=== PATIENT | female | born 1960 | race Caucasian/White ===

== ENCOUNTER 2020-03-19 07:43 | Outpatient (CLI) | payer BC, SELFPAY ==
--- NOTE | 2020-03-19 | EST_ITS ---
Patient Info Name: Jazmin Coppola Age: 59 years : 1960 Gender: Female Ht: 64 in Wt: 180 lbs BSA: 1.95 m2 Exam Date: 03/19/2020 10:07 AM Exam Location: [facility] Stress Patient Status: Outpatient Admit Date: 03/19/2020 Staff Ordering Physician: Eugenio Schroeder MD Attending Provider: Eugenio Schroeder MD Exercise Technologist: Betty Luque RDCS Exercise Physician: Jonny Kapadia DO Exam Type: CA stress rakesh w NM Study Info Indications R07.9 - Chest pain, unspecified A regadenoson stress test was performed. Summary 1. 1. Negative lexiscan stress test for ischemic ST changes by ECG criteria. 2. 2. Baseline hypertension. 3. 3. Nuclear scan to follow and will be reported separately. Please correlate with it. 4. 4. Patient informed of the above results. Protocol: Lexiscan Stress ECG Details Stage: REST Duration (min): 7 min : 22 sec HR (bpm): 81 SBP (mmHg): 153 DBP (mmHg): 90 Stage: REST Duration (min): 11 min : 29 sec HR (bpm): 76 SBP (mmHg): 153 DBP (mmHg): 90 Stage: STAGE 1 Duration (min): 1 min : 0 sec HR (bpm): 88 SBP (mmHg): 150 DBP (mmHg): 88 Stage: RECOVERY Duration (min): 1 min : 0 sec HR (bpm): 98 SBP (mmHg): 146 DBP (mmHg): 85 Stage: RECOVERY Duration (min): 2 min : 0 sec HR (bpm): 98 SBP (mmHg): 146 DBP (mmHg): 85 Stage: RECOVERY Duration (min): 3 min : 0 sec HR (bpm): 96 SBP (mmHg): 151 DBP (mmHg): 81 Stage: RECOVERY Duration (min): 3 min : 4 sec HR (bpm): 94 SBP (mmHg): 151 DBP (mmHg): 81 Rest HR: 76 bpm Peak HR: 101 bpm Rest Sys BP: 153 mmHg Peak Sys BP: 151 mmHg Max Pred HR: 160 bpm % Max Pred HR: 63 % Target HR: 136 bpm Max RPP: 15,251 bpm*mmHg Termination Reason: Completed protocol Cardiac Symptoms: Shortness of breath Total Time: 1 min : 0 sec Rest Marc BP: 90 mmHg Peak Marc BP: 81 mmHg Total Dose: 0.4 mg Resting ECG Sinus rhythm. Stress ECG No ST changes. Arrhythmias None. Report Signatures
--- NOTE | ~2020-03-19 | NM_ITS ---
EXAMINATION: NM rakesh stress w perfusion DATE: 03/19/2020 12:54 INDICATION: Chest pain TECHNIQUE: Rest images were obtained following intravenous administration of 10.7 mCi Tc99m tetrofosm in (Myoview). The patient was infused intravenously with Lexiscan (Regadenoson). Then, 30.2 mCi Tc99m tetrofosmin (Myoview) was administered intravenously, and stress images were obtained in supine posi tion. Additional post stress images were obtained in prone position. Data was reconstructed into shor t axis and horizontal and vertical long axis SPECT images. Gated SPECT images were also obtained. COMPARISON: None. FINDINGS: There is no definite reversible or fixed perfusion abnormality to suggest ischemia or infar ction. There is normal left ventricular chamber size, wall motion and ejection fraction. Left ventr icular ejection fraction measures 61%. IMPRESSION: 1. Normal myocardial perfusion at rest and during stress. 2. Left ventricular ejection fraction measuring 61%. Reviewed, dictated and finalized at location A.
== END 2020-03-19 07:44 | disposition home or self-care (01) ==
PROVIDERS: PCP Family Medicine; Visit Provider Family Medicine
DX: R07.9 Chest pain, unspecified (principal)
CPT/HCPCS: 78452; 93017; A9502; J2785

== ENCOUNTER 2020-08-13 16:46 | Outpatient (CLI) | payer BC, SELFPAY | END 2020-08-13 16:47 | disposition home or self-care (01) | LOC: ANHCOVIDVC 16:46 | PROVIDERS: PCP Family Medicine | DX: Z23 Encounter for immunization (principal) | CPT/HCPCS: 0001A; 91300 ==

== ENCOUNTER → 2020-08-30 06:50 | Outpatient (CLI) | payer BC, SELFPAY ==
[2020-08-30 19:22] LABS: SARS-CoV-2 RNA PCR Negative
== END ==
PROVIDERS: PCP Family Medicine; Visit Provider Physician Assistant Medical
DX: R68.89 Other general symptoms and signs (principal); Z20.822 Contact with and (suspected) exposure to COVID-19
CPT/HCPCS: C9803; U0003; U0005

== ENCOUNTER 2020-09-10 14:22 | Outpatient (CLI) | payer BC, SELFPAY ==
--- NOTE | ~2020-09-10 | XR_ITS ---
XR chest 2V DATE: 09/10/2020 14:46 INDICATION: Wheezing TECHNIQUE: PA and lateral views COMPARISON: 12/12/2018 PA and lateral chest FINDINGS: Normal heart size. No hilar or mediastinal enlargement. Mild thoracic aortic arch calcifica tion. No pulmonary infiltrate or consolidation, pleural effusion or pulmonary vascular congestion or pneumo thorax. Mild thoracic and lumbar scoliosis and degenerative change. Osteopenia is suggested. IMPRESSION: No active cardiopulmonary disease Mild degenerative change and scoliosis of the thoracic and lumbar spine. Osteopenia Reviewed, dictated and finalized at location A.
== END 2020-09-10 14:23 | disposition home or self-care (01) ==
LOC: ANHCOVIDVC 14:37 → ANHIMG 14:38
PROVIDERS: PCP Family Medicine; Visit Provider Physician Assistant Medical
DX: R06.2 Wheezing (principal); M41.84 Other forms of scoliosis, thoracic region; M41.86 Other forms of scoliosis, lumbar region; M85.88 Other specified disorders of bone density and structure, other site
CPT/HCPCS: 71046

== ENCOUNTER 2020-09-24 16:34 | Outpatient (CLI) | payer BC, SELFPAY | END 2020-09-24 16:35 | disposition home or self-care (01) | LOC: ANHCOVIDVC 16:34 | PROVIDERS: PCP Family Medicine | DX: Z23 Encounter for immunization (principal) | CPT/HCPCS: 0002A; 91300 ==

== ENCOUNTER 2020-10-17 09:48 | Outpatient (CLI) | payer BC, SELFPAY ==
--- NOTE | ~2020-10-17 | XR_ITS ---
EXAMINATION: XR thoracic spine 3V EXAM DATE: 10/17/2020 10:12 INDICATION: M51.34 - Other intervertebral disc degeneration, thoracic region. Back pain. TECHNIQUE: Frontal and lateral projections of the thoracic spine as well as lateral swimmers projecti on of the upper thoracic spine for interpretation. Correlation is made to lumbar x-ray same date. FINDINGS: Mild mid and lower thoracic disc disease with some small endplate osteophytes. The vertebr al body heights are maintained. The vertebral bodies are aligned in the AP dimension. Paraspinal soft tissue is unremarkable. There are no bony erosions identified. IMPRESSION: Mild mid and lower thoracic spondylosis. Reviewed, dictated and finalized at location A.
--- NOTE | ~2020-10-17 | XR_ITS ---
EXAMINATION: XR lumbar spine 6V w bending EXAM DATE: 10/17/2020 10:12 INDICATION: Low back pain and bilateral leg tingling. TECHNIQUE: Lumber spine frontal, lateral, bilateral oblique projections. Coned down frontal and lat eral L5-S1 lumbar projections for interpretation. Additional lateral flexion and lateral extension p rojections obtained. There are no prior studies for comparison. FINDINGS: Vertebral bodies are aligned on the lateral projections. Mild diffuse lumbar disc disease. No spondylolysis. There is moderate lower lumbar facet arthropathy. Sacrum, sacroiliac joints, sacral arcuate lines are intact. Paraspinal soft tissue is unremarkable. IMPRESSION: 1. Moderate lower lumbar facet arthropathy. 2. Mild disc disease. Reviewed, dictated and finalized at location A.
== END 2020-10-17 09:49 | disposition home or self-care (01) ==
PROVIDERS: PCP Family Medicine; Visit Provider Family Medicine
DX: M51.36 Other intervertebral disc degeneration, lumbar region (principal); M47.814 Spondylosis without myelopathy or radiculopathy, thoracic region; M47.816 Spondylosis without myelopathy or radiculopathy, lumbar region; M51.9 Unspecified thoracic, thoracolumbar and lumbosacral intervertebral disc disorder
CPT/HCPCS: 72072; 72114

== ENCOUNTER 2020-11-02 09:59 | Outpatient (CLI) | payer BC, SELFPAY ==
--- NOTE | ~2020-11-02 | MR_ITS ---
EXAMINATION: MR lumbar spine wo con EXAM DATE: 11/02/2020 11:33 INDICATION: M51.36 - Other intervertebral disc degeneration, lumbar region . Pain down right leg. TECHNIQUE: Multi-sequential, multiplanar MR images of the lumbar spine were obtained without contrast . Sagittal T1, T2, T2 fat saturation images. Axial T2 weighted images. Comparison is made to prior examination from lumbar x-ray 10/17/2020. FINDINGS: The conus medullaris terminates at the L1/2 level and has normal signal intensity and morph ology. The vertebral bodies are aligned in the AP dimension. Vertebral body and disc heights are well -maintained. Small hemangioma in the L2 vertebral body. The vertebral body marrow is otherwise normal in signal intensity. Paraspinal soft tissue is unremarkable. Fluid signal intensity left renal lesio n, imaged portion is consistent with cyst Level by level evaluation: T12-L1: There is a minimal diffuse disc bulge. Facet arthropathy: None. Neural foraminal stenosis: No stenosis. Central canal stenosis: No stenosis. L1-L2: Disc does not extend beyond the endplate margin. Facet arthropathy: Mild. Neural foraminal stenosis: No stenosis. Central canal stenosis: No stenosis. L2-L3: Disc does not extend beyond the endplate margin. Facet arthropathy: Mild. Neural foraminal stenosis: No stenosis. Central canal stenosis: No stenosis. L3-L4: There is a mild diffuse disc bulge, far left annular fissure. Facet arthropathy: Mild. Neural foraminal stenosis: Minimal left. Central canal stenosis: No stenosis. L4-L5: There is a mild diffuse disc bulge. Facet arthropathy: Moderate left, mild to moderate right. Small right synovial cyst narrowing right l ateral recess Neural foraminal stenosis: Mild to moderate right, mild left. Central canal stenosis: Mild. L5-S1: There is a mild diffuse disc bulge. Facet arthropathy: Mild. Neural foraminal stenosis: Mild bilateral. Central canal stenosis: No stenosis. IMPRESSION: 1. L4-5 spondylosis, small right facet synovial cyst causing some mass effect on traversing right L5 nerve root at the lateral recess. 2. Less spondylosis other levels. Reviewed, dictated and finalized at location A.
== END 2020-11-02 10:00 | disposition home or self-care (01) ==
PROVIDERS: PCP Family Medicine; Visit Provider Family Medicine
DX: M51.36 Other intervertebral disc degeneration, lumbar region (principal); M47.816 Spondylosis without myelopathy or radiculopathy, lumbar region
CPT/HCPCS: 72148

== ENCOUNTER 2020-11-05 12:32 | Outpatient (CLI) | payer BC, SELFPAY ==
--- NOTE | ~2020-11-05 | DEXA_ITS ---
Bone Density Report Name: Jazmin Coppola Age: 60 Sex: Female Ethnicity: White Date of : 1960 Indication: postmenopausal; height loss; prior fracture; cancer; hysterectomy; Referring Provider: Nathan Bella Study: Bone densitometry was performed. Exam Date: November 05, 2020 Accession number: [id number] Bone Density: Region BMD T-score Z-score Classification AP Spine (L1-L4) 1.028 -0.2 1.3 Normal Femoral Neck (Left) 0.859 0.1 1.4 Normal Total Hip (Left) 1.047 0.9 1.9 Normal Total Hip Bilateral Avg 1.075 1.1 2.1 Normal Femoral Neck (Right) 0.819 -0.3 1.1 Normal Total Hip (Right) 1.102 1.3 2.3 Normal World Health Organization criteria for BMD impression classify patients as: Normal (T-score at or above -1.0), Osteopenia (T-score between -1.0 and -2.5), or Osteoporosis (T-score at or below -2.5). 10-year Fracture Risk: FRAX not reported because: All T-scores for Spine Total, Hip Total, Femoral Neck at or above -1.0 Prior hip or vertebral fracture Clinical Information Provided by Patient: Have had a previous hip or vertebral fracture Has had a low trauma fracture Smokes Has used the following medications: Vitamin D Has the following medical conditions: Cancer, Hysterectomy Patient maximum height was 66 Menopause Age: 39 No regular weight bearing exercise Onset of menses at age 11 Number of children 3 Impression: The patient has normal bone mass. The patient has risk factors, including: smoking, previous fracture. Discussion: INCREASED RISK OF FRACTURE DUE TO HISTORY OF FRACTURE. The patient's previous fracture puts the patient at high risk of a future fracture. In untreated patients, the risk of osteoporotic fracture increases approximately two-fold for each 1.0 SD decrease in T-score. Low bone density is not the only risk factor for fracture; also consider factors such as patient's age, frailty or poor health, risk of falling, risk of injury, previous osteoporotic fracture, family history of osteoporosis, cigarette smoking, low body weight, etc. Not everyone with a low trauma fracture has osteoporosis; osteomalacia and other metabolic bone disorders should also be considered. Patients who have osteoporosis should be evaluated for specific diseases and conditions (secondary causes) that may cause or contribute to bone loss and fracture risk. National Osteoporosis Foundation (NOF) recommends pharmacologic intervention for patients with a prior hip or vertebral fracture regardless of BMD T-score. The patient should follow a healthful lifestyle (good nutrition with adequate calcium and vitamin D, and appropriate weight-bearing exercise). Follow-Up: Consider a repeat BMD and Vertebral Fracture Assessment (VFA) exam in 2 years or sooner if medically necessary, to reassess this patient's status.
== END 2020-11-05 12:33 | disposition home or self-care (01) ==
LOC: ANHIMG 12:36
PROVIDERS: PCP Family Medicine; Visit Provider Nurse Practitioner Family
DX: Z78.0 Asymptomatic menopausal state (principal)
CPT/HCPCS: 77080

== ENCOUNTER 2020-12-30 15:03 | Outpatient (CLI) | payer BC, SELFPAY ==
[2020-12-30 16:01] LABS: Basophils Absolute Auto 0.1 K/mm3 (0.0-0.1); Basophils Percent Auto 0.6 % (0.2-1.2); Eosinophils Absolute Auto 0.2 K/mm3 (0-0.3); Eosinophils Percent Auto 1.4 % (0-4.4); Hematocrit 53.2 % (37.0-47.0); Hemoglobin 17.1 g/dL (12.0-15.0); Immature Granulocyte Percent A 0.6 % (0-0.5); Lymphocytes Absolute Auto 4.09 K/mm3 (0.9-3.2); Lymphocytes Percent Auto 23.3 % (18.3-44.2); Mean Corpuscular HGB Conc 32.1 g/dl (32-36); Mean Corpuscular Hemoglobin 28.6 pg (26-34); Mean Corpuscular Volume 89.1 fl (80-100); Monocytes Absolute Auto 1.2 K/mm3 (0.1-0.6); Monocytes Percent Auto 7.1 % (2.6-8.5); Neutrophils Absolute Auto 11.8 K/mm3 (1.3-6.7); Platelet Count Result 306 k/mm3 (150-375); Red Blood Count 5.97 M/mm3 (4.2-5.4); Red Cell Distribution Width 13.1 % (11.5-14.5); White Blood Count 17.6 K/mm3 (4.5-10.0)
--- NOTE | 2020-12-30 16:08 | ECG_ITS ---
Measurements Intervals [place] Rate: 90 P: -4 ND: 140 QRS: 60 QRSD: 71 T: 17 QT: 334 QTc: 411 Interpretive Statements SINUS RHYTHM BORDERLINE T WAVE ABNORMALITY- INFERIOR LEADS BASELINE ARTIFACT- V6 BORDERLINE ECG Electronically Signed On 12-30-2020 16:48:58 CDT by Jonny Kapadia D.O.
[2020-12-30 16:21] LABS: Alanine Aminotransferase 17 U/L (4-35); Albumin Level 4.3 g/dL (3.5-5.1); Alkaline Phosphatase 141 U/L (38-126); Anion Gap 10 mmol/L (8-16); Aspartate Amino Transferase 29 U/L (14-36); Bilirubin,Total 0.3 mg/dL (0.2-1.3); Blood Urea Nitrogen 18 mg/dL (7-17); Calcium 9.9 mg/dL (8.4-10.2); Carbon Dioxide 29 mmol/L (22-30); Chloride 98 mmol/L (98-107); Estimated Glomerular Filt Rate > 60; Glucose 340 mg/dL (65-110); Sodium 137 mmol/L (137-145)
[2020-12-30 16:37] LABS: Free T4 Free Thyroxine 1.02 ng/mL (0.78-2.19)
[2020-12-30 16:52] LABS: Thyroid Stimulating Hormone 0.994 uIU/mL (0.465-4.680)
[2020-12-30 19:17] LABS: Hemoglobin A1C 13.4 % (<5.7)
== END 2020-12-30 15:04 | disposition home or self-care (01) ==
PROVIDERS: PCP Family Medicine; Visit Provider Nurse Practitioner Family
DX: R42 Dizziness and giddiness (principal); E11.9 Type 2 diabetes mellitus without complications; R11.0 Nausea; E03.9 Hypothyroidism, unspecified; I10 Essential (primary) hypertension
CPT/HCPCS: 36415; 80053; 83036; 84439; 84443; 85025; 93005

== ENCOUNTER → 2020-12-31 08:06 | Outpatient (CLI) | payer BC, SELFPAY ==
[2020-12-31 18:17] LABS: SARS-CoV-2 RNA PCR Negative
== END ==
PROVIDERS: PCP Family Medicine; Visit Provider Nurse Practitioner Family
DX: R68.89 Other general symptoms and signs (principal); Z20.822 Contact with and (suspected) exposure to COVID-19
CPT/HCPCS: C9803; U0003; U0005

== ENCOUNTER 2021-01-28 07:26 | Outpatient (CLI) | payer BC, SELFPAY ==
--- NOTE | 2021-01-28 07:48 | ECHO_ITS ---
Patient Info Name: Jazmin Coppola Age: 60 years : 1960 Gender: Female Ht: 65 in Wt: 200 lbs BSA: 2.07 m2 HR: 88 bpm BP: 126 / 80 mmHg Technical Quality: Good Exam Date: 01/28/2021 8:04 AM Exam Location: [facility] Patient Status: Outpatient Admit Date: 01/28/2021 Staff Ordering Physician: Oksana Padilla NP Vice President Of Talent Acquisition: Betty Luque RDCS Attending Provider: Oksana Padilla NP Referring Physician: Valerie PALAFOX; Exam Type: CA echo doppler color flow Study Info Indications G47.30 - SLEEP APNEA, UNSPECIFIED Complete two-dimensional, color flow and Doppler transthoracic echocardiogram is performed. Summary 1. Complete two-dimensional, color flow and Doppler transthoracic echocardiogram is performed. 2. Left ventricular chamber dimension is normal. 3. Left ventricular systolic function is normal, estimated at 60-65%. 4. The left ventricular diastolic function is grade I diastolic dysfunction. 5. E/e' 11 is mildly elevated. 6. Global longitudinal strain is abnormal at -15.6%. 7. No pulmonary hypertension, estimated pulmonary arterial systolic pressure is 18 mmHg. Left Ventricle E/e' 11 is mildly elevated. Global longitudinal strain is abnormal at -15.6%. Left ventricular chamber dimension is normal. Left ventricular systolic function is normal, estimated at 60-65%. The left ventricular diastolic function is grade I diastolic dysfunction. Right Ventricle Right ventricular chamber dimension is normal. Right ventricular systolic function is normal. Left Atria Left atrial chamber dimension is normal. Right Atria Right atrial chamber dimension is normal. Aortic Valve The aortic valve is trileaflet. There is no aortic valve stenosis. There is no aortic valve regurgitation. Pulmonic Valve There is no pulmonic regurgitation. Mitral Valve There is no mitral valve stenosis. There is no mitral valve regurgitation. Tricuspid Valve There is no tricuspid valve regurgitation. No pulmonary hypertension, estimated pulmonary arterial systolic pressure is 18 mmHg. Pericardium/Pleural There is no pericardial effusion. Inferior Vena Cava Normal inferior vena cava with >50% collapse upon inspiration consistent with normal right atrial pressure, 5 mmHg. Aorta The aortic root size at the sinus of Valsalva is normal. Left Ventricular Outflow Tract Name Value Normal LVOT 2D LVOT Diameter 2.0 cm LVOT Doppler LVOT Peak Gradient 5 mmHg LVOT Mean Gradient 3 mmHg LVOT VTI 18 cm LVOT VTI/AV VTI Ratio 0.8 LVOT Stroke Volume 58 ml LVOT CO 5.0 l/min LVOT CI 2.4 l/min/m2 Pulmonic Valve Name Value Normal RVOT Doppler
--- NOTE | 2021-01-31 12:41 | WPDHOLTEREM ---
Holter/Event Monitor Holter/Event Monitor Date of procedure: 01/31/21 Holter/Event Procedure: 48 Hr Holter Monitor Indications: Palpitations Conclusion: 1. 48 hour holter monitor on 01/28/21. 2. Predominant rhythm is sinus rhythm. HR range 59-150 bpm; average HR 93 bpm. 3. There are 75 premature supraventricular complexes, 1 supraventricular couplet. One episode of atrial tachycardia at 150 bpm lasting 5 beats. 4. There is 7 premature ventricular complexes. No ventricular tachycardia. 5. No sinoatrial or atrioventricular blocks. No significant pauses greater than 2 seconds. 6. Patient reports chest tightness which demonstrate sinus rhythm at 85 bpm and PAC's.
== END 2021-01-28 07:27 | disposition home or self-care (01) ==
PROVIDERS: PCP Family Medicine; Visit Provider Nurse Practitioner Family
DX: G47.30 Sleep apnea, unspecified (principal); I10 Essential (primary) hypertension; R00.2 Palpitations
CPT/HCPCS: 93225; 93226; 93306

== ENCOUNTER 2021-02-24 07:54 | Outpatient (CLI) | payer BC, SELFPAY ==
--- NOTE | 2021-03-06 13:55 | WPDHOMESLEEP ---
Sleep Study - Home Unattended Date of Study: 02/24/21 Ordering Provider: Eugenio Schroeder MD Interpreting Provider: Mayra Werner, DO Home Sleep Study Type: Apnea Link Air Height: 1.65 m Weight: 90.718 kg Body Mass Index: 33.3 Neck Circumference (inches): 15 [place]: 10 Reason for Sleep Study The patient had a home sleep test ordered due to insomnia. Sleep History The patient is a 60-year-old female with hypertension, type 2 diabetes and chronic pain that complains of poor sleep. She states that she is unable to sleep for more than 2 hours at a time for over 1 year. She states that she has chronic hip and leg pain. She is currently on tramadol for pain and Ambien to help her sleep. Despite being on both of these medications, she is up multiple times per night. The patient states that she never wakes up from sleep short of breath. She often wakes up coughing throughout the night. She rarely snores but never loud enough that anyone complaints. She denies waking up gasping for air. She denies having breathing problems at night. She does have heart palpitations throughout the night. She does not fall asleep throughout the day or while driving. She denies cataplexy, sleep paralysis, hypnopompic and hypnagogic hallucinations. She denies nightmares. She never feels sad or depressed. She rarely has anxiety about things. She frequently has muscle tension and notices parts of her body jerk. She really has [place] throughout the night. She does experience crawling and aching feelings in her legs and does have leg pain throughout the night. She used to grind her teeth at night but rarely wakes up with drop pain. She is awakened by pain constantly throughout the night and is often bothered by pain throughout the day. She frequently wakes up with sore and achy muscles. The patient states that she goes to bed at 10:00 p.m. to midnight both on the week days in the week nights. She will get 4-6 hours of sleep but is mostly broken. she will wake up 5-6 times throughout the night for various reasons. She is unsure how long it takes her to fall back asleep. When she awakens throughout the night she will sometimes sit up in the kitchen. She will awake in anywhere from 7-10 a.m. both weekdays and weekends. She currently lives with her . She is a homemaker. She does not drink any caffeinated beverages 2 hours prior to bedtime. She denies any physical exercise prior to bedtime. She sometimes reads and watches television before going to bed. She does nap in the afternoon or evening and it is sometimes refreshing. she currently smokes 1 pack of cigarettes per day. She denies any caffeine, alcohol and recreational drug use. [facility] Past Medical History Medical History Abnormal MRI, spine BMI 34.0-34.9,adult BMI 35.0-35.9,adult BMI 36.0-36.9,adult Chest pain Degenerative lumbar disc Essential (primary) hypertension Fibromyalgia Holter monitor, abnormal Hypothyroidism Low vitamin B12 level Lumbosacral radiculopathy due to degenerative joint disease of spine PAC (premature atrial contraction) Post-menopausal Thoracic degenerative disc disease Type 2 diabetes mellitus without complications Vitamin D deficiency, unspecified Family History Family History Father Hypertension Mother Hypertension Diabetes mellitus Gall stone Son No problems noted. Sibling Hypertension Gall stone Other Family history of malignant neoplasm of brain Social History Social History Smoking packs per day: 1 Smoking cigarettes per day: 20.0 Years smoked: 25 Smoking pack-years: 25.00 Smoking status: Current every day smoker Tobacco type: cigarettes Second hand tobacco smoke exposure: No Alcohol intake: current Substance use: never Substa
[2021-03-06 14:07] VITALS: BMI 33.3
== END 2021-02-25 10:38 | disposition home or self-care (01) ==
LOC: ANHCSM 07:56
PROVIDERS: PCP Family Medicine; Visit Provider Family Medicine
DX: G47.00 Insomnia, unspecified (principal)
CPT/HCPCS: 95806

== ENCOUNTER 2021-03-04 22:05 | Emergency (ER) | payer BC, SELFPAY ==
[2021-03-04 22:15] VITALS: BP 161/86; PULSE 92; PULSE 95; RESP 17; O2SAT 98
--- NOTE | 2021-03-04 22:18 | ECG_ITS ---
Measurements Intervals [place] Rate: 86 P: 50 SD: 162 QRS: 51 QRSD: 82 T: 39 QT: 332 QTc: 398 Interpretive Statements SINUS RHYTHM BORDERLINE R WAVE PROGRESSION, ANTERIOR LEADS BASELINE ARTIFACT- I, II, III, AVR, AVF, V1 BORDERLINE ECG Electronically Signed On 03-05-2021 6:20:52 CDT by Jonny Kapadia D.O.
--- NOTE | 2021-03-04 23:06 | ED.ARRPALP ---
HPI - Arrhythmia/Palpitations General Chief Complaint: Chest Pain Stated Complaint: chest pain Time Seen by Provider: 03/04/21 22:46 History of Present Illness HPI narrative: 60-year-old female past medical history of hypertension negative nuclear stress test 1 year ago who has an appoint with her steam table associate tomorrow complaining of multiple episodes of chest squeezing with palpitations prior to arrival when she went to sleep. No fever no shortness of breath no syncope no leg swelling, no recent travel no recent surgeries. Multiple episodes of left-sided chest pain felt like it was going up behind her chest per patient and then went away. No chest pain currently. No palpitations current knee. Patient recently had a Holter monitor done and is following up with her steam table associate regarding results she also had a sleep study done. Patient has had fluttering at bedtime but she says it has never been this painful before. complaint: palpitations Duration: intermittent and now resolved Severity: severe Context: occurred during rest Associated symptoms: chest pain Related Data Allergies Allergy/AdvReac Type Severity Reaction Status Date / Time aspirin Allergy Unknown Unknown Verified 03/05/21 11:12 clopidogrel Allergy Unknown Unknown Verified 03/05/21 11:12 codeine Allergy Unknown Nausea Verified 03/05/21 11:12 ibuprofen Allergy Unknown Unknown Verified 03/05/21 11:12 CLOPIDOGREL BISULFATE Allergy Mild Unknown Uncoded 03/05/21 11:12 Review of Systems Review of Systems: CONSTITUTIONAL: no fever, no weight loss, no confusion EYES: no vision changes, no eye pain ENT: no rhinorrhea, no sore throat, no difficulty swallowing CARDIOVASCULAR: positive for chest pain, no leg edema, positive for palpitations RESPIRATORY: no cough, no shortness of breath, no hemoptysis GASTROINTESTINAL: no abdominal pain, no nausea, no vomiting, no diarrhea GENITOURINARY: no flank pain, no dysuria, no hematuria SKIN: no rash, no jaundice MUSCULOSKELETAL: no back pain, no trauma. NEUROLOGIC: No headache, no dizziness, no focal weakness PSYCHIATRIC: No hallucinations, no suicidal ideation PMFSH Past Medical History Medical History Abnormal MRI, spine BMI 34.0-34.9,adult BMI 35.0-35.9,adult BMI 36.0-36.9,adult Chest pain Degenerative lumbar disc Essential (primary) hypertension Fibromyalgia Holter monitor, abnormal Hypothyroidism Low vitamin B12 level Lumbosacral radiculopathy due to degenerative joint disease of spine PAC (premature atrial contraction) Post-menopausal Thoracic degenerative disc disease Type 2 diabetes mellitus without complications Vitamin D deficiency, unspecified Family History Family History Father Hypertension Mother Hypertension Diabetes mellitus Gall stone Son No problems noted. Sibling Hypertension Gall stone Other Family history of malignant neoplasm of brain Social History Social History Smoking packs per day: 1 Smoking cigarettes per day: 20.0 Years smoked: 25 Smoking pack-years: 25.00 Smoking status: Current every day smoker Tobacco type: cigarettes Second hand tobacco smoke exposure: No Alcohol intake: current Substance use: never Substance use type: does not use Additional occupation/education comments: homebody Gender identity (if verbalized by the patient): Female Exam Narrative: General: alert, afebrile, answering all questions appropriately Head: normocephalic, atraumatic Eyes: EOMI bilaterally, anicteric, no injection ENT: moist mucous membranes, oropharynx patent Neck: supple, trachea midline, no JVD Chest: equal chest rise bilaterally, no chest wall trauma noted Lungs: clear to auscultation bilaterally, respirations unlabored CV: regular rate, no LUIS B, calf size equal bilaterally EXT:
--- NOTE | 2021-03-04 23:20 | PC.NURSE ---
Report received from SUSHIL Vargas, to continue care Awaiting disposition.
[2021-03-04 23:21] VITALS: BP 142/100; PULSE 94; RESP 18; O2SAT 96
== END 2021-03-04 23:27 | disposition home or self-care (01) ==
PROVIDERS: Emergency Provider Emergency Medicine; PCP Family Medicine
DX: R00.2 Palpitations (principal); R07.9 Chest pain, unspecified; I10 Essential (primary) hypertension; E03.9 Hypothyroidism, unspecified; F17.210 Nicotine dependence, cigarettes, uncomplicated
CPT/HCPCS: 93005; 99283

== ENCOUNTER 2021-09-23 11:41 | Outpatient (CLI) | payer OTHER, SELFPAY ==
[2021-09-23 12:20] LABS: Rheumatoid Factor < 8.6 IU/ML (<12)
[2021-09-23 12:45] LABS: Erythrocyte Sedimentation Rate 12 mm/hr (0-20)
== END 2021-09-23 11:42 | disposition home or self-care (01) ==
LOC: ANHLAB 11:43
PROVIDERS: PCP Family Medicine; Visit Provider Nurse Practitioner Family
DX: M79.7 Fibromyalgia (principal); M51.36 Other intervertebral disc degeneration, lumbar region
CPT/HCPCS: 36415; 85652; 86038; 86430

== ENCOUNTER 2021-10-20 12:57 | Outpatient (CLI) | payer OTHER, SELFPAY ==
[2021-10-20 13:30] LABS: Hemoglobin 16.5 g/dL (12.0-15.0); Mean Corpuscular HGB Conc 31.7 g/dl (32-36); Mean Corpuscular Hemoglobin 29.1 pg (26-34); Mean Corpuscular Volume 91.7 fl (80-100); Mean Platelet Volume 9.5 fl (7.4-10.4); Platelet Count Result 310 k/mm3 (150-375); Red Blood Count 5.67 M/mm3 (4.2-5.4); Red Cell Distribution Width 13.1 % (11.5-14.5); White Blood Count 14.5 K/mm3 (4.5-10.0)
[2021-10-20 13:44] LABS: Alanine Aminotransferase 11 U/L (6-35); Albumin Level 4.5 g/dL (3.5-5.1); Alkaline Phosphatase 86 U/L (38-126); Anion Gap 5 mmol/L (8-16); Aspartate Amino Transferase 29 U/L (14-36); Bilirubin,Total 0.5 mg/dL (0.2-1.3); Blood Urea Nitrogen 13 mg/dL (7-17); Calcium 9.4 mg/dL (8.4-10.2); Carbon Dioxide 34 mmol/L (22-30); Chloride 93 mmol/L (98-107); Cholesterol 235 mg/dL (0-200); Estimated Glomerular Filt Rate > 60; Glucose 142 mg/dL (65-110); HDL Direct 56 mg/dL; Sodium 132 mmol/L (137-145); Triglycerides 233 mg/dL (<150)
[2021-10-20 13:55] LABS: LDL Cholesterol Direct 133 mg/dL
[2021-10-20 14:16] LABS: Creatinine Urine 150.4 mg/dL
[2021-10-20 14:21] LABS: MALB Creatinine Ratio 10.2 mg/g (0-30); Microalbumin Urine Random 15.3 mg/L (0-16.7)
[2021-10-20 14:32] LABS: Free T4 Free Thyroxine 1.02 ng/mL (0.78-2.19); Vitamin D 25 Hydroxy 35.5 ng/mL
== END 2021-10-20 12:58 | disposition home or self-care (01) ==
LOC: ANHLAB 12:59
PROVIDERS: PCP Family Medicine; Visit Provider Family Medicine
DX: E11.9 Type 2 diabetes mellitus without complications (principal); E03.9 Hypothyroidism, unspecified; E53.8 Deficiency of other specified B group vitamins; E55.9 Vitamin D deficiency, unspecified; E78.5 Hyperlipidemia, unspecified; Z13.220 Encounter for screening for lipoid disorders; I10 Essential (primary) hypertension
CPT/HCPCS: 36415; 80048; 80061; 80076; 82043; 82306; 82607; 84439; 84443; 85027

== ENCOUNTER 2021-10-29 08:47 | Outpatient (CLI) | payer OTHER, SELFPAY ==
--- NOTE | ~2021-10-29 | MR_ITS ---
EXAMINATION: MR lumbar spine wo con DATE: 10/29/2021 09:16 INDICATION: Other spondylosis with radiculopathy, lumbosacral region. Low back pain. Bilateral leg pa in. TECHNIQUE: Magnetic resonance imaging (MRI) of the lumbar spine was performed without intravenous con trast. Sequences included sagittal T2-weighted FSE, sagittal T2-weighted FS FSE, sagittal T1-weighted FSE, and axial T2-weighted FSE. COMPARISON: Lumbar spine MRI 11/02/2020 FINDINGS: There is 5 degrees levocurvature of lumbar spine. Vertebral body heights are normal. Interv ertebral disc heights are normal. The distal spinal cord signal intensity is normal. The conus medull hua is at T12-L1. There is a 19 mm cyst in left kidney. The following disc levels are specifically d iscussed: L1-L2: There is a central protrusion. There is mild bilateral facet joint osteoarthritis. There is no neural foraminal stenosis. There is mild central canal stenosis. L2-L3: The disc does not extend beyond the endplate margin. There is mild bilateral facet joint osteo arthritis. There is no neural foraminal stenosis. There is no central canal stenosis. L3-L4: The disc is bulging and has an annular fissure. There is mild right and moderate left facet ric int osteoarthritis. There is mild left neural foraminal stenosis. There is mild central canal stenosi s. L4-L5: The disc is bulging and has an annular fissure. There is severe bilateral facet joint osteoart hritis. There is mild bilateral neural foraminal stenosis. There is mild central canal stenosis. L5-S1: The disc is bulging. There is severe bilateral facet joint osteoarthritis. There is mild left neural foraminal stenosis. There is mild central canal stenosis. IMPRESSION: 1. Mild lumbar spondylosis, stable from 11/02/2020. Reviewed, dictated and finalized at location A.
== END 2021-10-29 08:48 ==
LOC: MICIMG 08:48
PROVIDERS: PCP Family Medicine; Visit Provider Family Medicine
DX: M47.27 Other spondylosis with radiculopathy, lumbosacral region (principal)
CPT/HCPCS: 72148

== ENCOUNTER 2022-01-26 13:38 | Outpatient (CLI) | payer OTHER, SELFPAY ==
[2022-01-26 14:12] LABS: Alanine Aminotransferase 12 U/L (6-35); Albumin Level 4.4 g/dL (3.5-5.1); Alkaline Phosphatase 86 U/L (38-126); Aspartate Amino Transferase 31 U/L (14-36); Bilirubin,Total 0.4 mg/dL (0.2-1.3)
== END 2022-01-26 13:39 | disposition home or self-care (01) ==
LOC: ANHLAB 13:40
PROVIDERS: PCP Family Medicine; Visit Provider Family Medicine
DX: B35.1 Tinea unguium (principal)
CPT/HCPCS: 36415; 80076

== ENCOUNTER 2022-06-03 17:46 | Outpatient (CLI) | payer OTHER, SELFPAY ==
--- NOTE | ~2022-06-03 | XR_ITS ---
Right Knee Technique: AP, lateral, and sunrise views were obtained. Clinical History: Pain Findings: No fracture or dislocation is seen. Osseous alignment is anatomic. Joint spaces are preserv ed without degenerative or erosive change. Soft tissues are unremarkable. No joint effusion is seen. Impression: Unremarkable right knee radiographs. Reviewed, dictated and finalized at location . R INSTALLATION MANAGER Impression: Unremarkable right knee radiographs.
== END 2022-06-03 17:47 | disposition home or self-care (01) ==
PROVIDERS: PCP Family Medicine; Visit Provider Physician Assistant Medical
DX: M25.561 Pain in right knee (principal)
CPT/HCPCS: 73562

== ENCOUNTER 2022-06-22 12:47 | Outpatient (CLI) | payer OTHER, SELFPAY ==
--- NOTE | ~2022-06-22 | MR_ITS ---
MRI of the right knee Clinical history: Pain Technique: Coronal proton density and proton density-weighted images, sagittal proton-density and T2 fat-sat images, and axial proton-density fat-saturated images were acquired. Findings: Anterior and posterior cruciate ligaments are intact. Medial collateral ligament and the la teral collateral ligament complex are intact. Popliteus tendon is intact. No lateral meniscal tear identified. There is horizontal tear of the posterior horn and body of the m edial meniscus. There is an associated 2.0 x 0.8 x 1.4 cm septated para meniscal cyst adjacent to the posterior horn (sagittal images 21-25, axial image 16-17). There is moderate chondral thinning along the central posterior aspect of the medial femoral condyle. Articular cartilage in the lateral compartment is well preserved. There is mild chondral malacia tate ng the femoral trochlea and patellar apex. Bone marrow signals are unremarkable. Extensor mechanism is intact. Minimal joint effusion present. No Gutierrez's cyst. Impression: Horizontal tear of the posterior horn and body of the medial meniscus, with associated 2.0 x 0.8 x 1. 4 cm septated para meniscal cyst. Please see details above. 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 Reviewed, dictated and finalized at location M. PHONE AD TAKER Impression: Horizontal tear of the posterior horn and body of the medial meniscus, with ass ociated 2.0 x 0.8 x 1.4 cm septated para meniscal cyst. Please see details abov e. 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
== END 2022-06-22 12:48 ==
LOC: MICIMG 12:48
PROVIDERS: PCP Family Medicine; Visit Provider Family Medicine
DX: S83.241A Other tear of medial meniscus, current injury, right knee, initial encounter (principal); M23.021 Cystic meniscus, posterior horn of medial meniscus, right knee; X58.XXXA Exposure to other specified factors, initial encounter
CPT/HCPCS: 73721

== ENCOUNTER 2022-10-29 16:44 | Outpatient (CLI) | payer OTHER, SELFPAY ==
[2022-10-29 17:52] LABS: Basophils Absolute Auto 0.1 K/mm3 (0.0-0.1); Basophils Percent Auto 0.7 % (0.2-1.2); Eosinophils Absolute Auto 0.4 K/mm3 (0-0.3); Eosinophils Percent Auto 2.5 % (0-4.4); Hematocrit 54.3 % (37.0-47.0); Hemoglobin 17.1 g/dL (12.0-15.0); Immature Granulocyte Absolute 0.07 K/mm3 (0.00-0.031); Immature Granulocyte Percent A 0.5 % (0-0.5); Lymphocytes Absolute Auto 6.33 K/mm3 (0.9-3.2); Lymphocytes Percent Auto 42.8 % (18.3-44.2); Mean Corpuscular HGB Conc 31.5 g/dl (32-36); Mean Corpuscular Hemoglobin 28.5 pg (26-34); Mean Corpuscular Volume 90.7 fl (80-100); Mean Platelet Volume 9.7 fl (7.4-10.4); Monocytes Percent Auto 6.9 % (2.6-8.5); Neutrophils Absolute Auto 6.9 K/mm3 (1.3-6.7); Neutrophils Percent Auto 46.6 % (45.5-73.1); Platelet Count Result 328 k/mm3 (150-375); Red Blood Count 5.99 M/mm3 (4.2-5.4); Red Cell Distribution Width 13.4 % (11.5-14.5); White Blood Count 14.8 K/mm3 (4.5-10.0)
[2022-10-29 18:01] LABS: Anion Gap 8 mmol/L (8-16); Blood Urea Nitrogen 15 mg/dL (7-17); Calcium 9.4 mg/dL (8.4-10.2); Carbon Dioxide 32 mmol/L (22-30); Chloride 99 mmol/L (98-107); Estimated Glomerular Filt Rate > 60; Glucose 96 mg/dL (65-110); Potassium 3.9 mmol/L (3.4-5.0); Sodium 139 mmol/L (137-145)
[2022-10-29 18:56] LABS: Vitamin D 25 Hydroxy 30.4 ng/mL
== END 2022-10-29 16:45 | disposition home or self-care (01) ==
LOC: ANHLAB 16:45
PROVIDERS: PCP Family Medicine; Visit Provider Family Medicine
DX: E55.9 Vitamin D deficiency, unspecified (principal); E53.8 Deficiency of other specified B group vitamins; I10 Essential (primary) hypertension
CPT/HCPCS: 36415; 80048; 82306; 82607; 84443; 85025

== ENCOUNTER 2022-11-04 00:09 | Day surgery (SDC) | payer OTHER, SELFPAY ==
[2022-10-30 12:29] VITALS: BMI 35.6
--- NOTE | 2022-10-30 13:01 | PC.NURSE ---
Report to the Outpatient Waiting Room, entrance under the green pavilion located off [facility], at time __10:00AM____ on date _11/04/22____. Planned Procedure Time: __12:00PM . Time changes happen often and if your time is changed the preop area will call you the afternoon before. - You and your visitor will be asked to self-screen and do not enter if you have any COVID symptoms. - A mask is optional within the hospital at this time. Patients may have clear liquids (water, carbonated beverages, clear teas, apple juice) until 3 hours prior to surgery with a maximum of 20 ounces. - No food from midnight until time of surgery Take the following medications with a SIP of water the morning of surgery: __TRAMADOL NEEDED DO NOT STOP ANY OF YOUR OTHER PRESCRIPTION MEDICATIONS PRIOR TO SURGERY ?EXCEPT THE FOLLOWING Medications to discontinue per physician ___HOLD ALL VITAMINS/SUPPLEMENTS 3 DAYS PRE-OP Date to take last dose 10/31/22 Please no make-up, nail cymraes, hairspray, perfume, deodorant, or body powder the day of surgery. No jewelry (including any body piercings) or valuables the day of surgery, leave them at home. Please take a shower or bath the night before, or the morning of, surgery with an antibacterial soap. Wear comfortable, loose fitting clothing. Children are encouraged to wear pajamas. - Jewelry must be removed prior to entering the operating room. Rings and piercings that are not removed may be cut off. - The hospital will not accept responsibility for valuables. - Please leave all valuables, including medications, at home the day of surgery. If you are going home after surgery, a licensed company tanker truck driver must drive you home. - NO public transportation without another adult if you receive anesthesia. - We recommend that an adult stay with you for 24 hours following discharge. - We also recommend that you do not drive, make important decision, drink alcoholic beverages, or take any drugs that were not prescribed by your health care provider for at least 24 hours after your discharge time. Follow any additional instructions given to you from your surgeon. HIBICLENS SHOWER PER DR RUVALCABA If you or anyone in your household have experienced Covid symptoms in the past week, please notify your surgeon or the nurse liaison at the phone number below for possible testing. Telephone instructions given to __PATIENT and asked if any additional questions and then verbalized understanding. Patient advised to call surgeon office or pre surgery nurse liaison [phone] if any additional questions.
[2022-11-04] VITALS (10 sets, daily range): BP systolic 109–139; BP diastolic 54–92; PULSE 78–98; RESP 10–20; TEMP 36.1–36.9; O2SAT 92–99; BMI 36.1
--- NOTE | 2022-11-04 07:15 | WPDHPUPDATE1 ---
History and Physical Update Update Date/Time: 11/04/22 07:15 History and Physical has been reviewed, including an updated exam of the patient. There are NO changes in the patient's condition. Risks, benefits, and alternatives have been discussed and questions answered. Patient agrees to proceed with procedure.
[2022-11-04] MEDS: LACTATED RINGERS 1,000 ML 30 ML IV CONT ×2 (07:30→11:14)
[2022-11-04] MEDS: ACETAMINOPHEN 500 MG TABLET 1000 MG PO (07:41)
[2022-11-04 07:49] LABS: Glucose Point of Care 162 mg/dl (65-105)
--- NOTE | 2022-11-04 08:12 | WPDANESEPPF ---
Anes - Initial Pre Proc Eval Procedure: Operation Date: 11/04/22 09:00 Proposed Procedures p Right Knee Arthroscopy - Gregorio Thomas MD Date/Time: 11/04/22 08:12 Surgeon: Gregorio Thomas MD Pre Op Diagnosis: Rt Knee Medial Meniscus Tear Patient Data Age: 62 Gender: F Height: 1.65 m Weight: 98.5 kg Allergies Allergy/AdvReac Type Severity Reaction Status Date / Time aspirin Allergy Unknown Hives Verified 11/04/22 07:14 clopidogrel Allergy Unknown HIVES, Verified 11/04/22 07:14 SWELLING codeine Allergy Unknown Nausea, Verified 11/04/22 07:14 HIVES ibuprofen Allergy Unknown GI BLEEDING Verified 11/04/22 07:14 NSAIDS (Non-Steroidal AdvReac GI BLEEDING Verified 11/04/22 07:14 Anti-Inflamma Home Medications Medication Instructions Recorded Confirmed Type cholecalciferol (vitamin D3) 50 50 mcg PO DAILY 03/03/22 10/30/22 History mcg (2,000 unit) capsule tramadol 50 mg tablet 100 mg PO Q8H PRN pain #180 tabs 07/21/22 10/30/22 Rx flash glucose sensor (FreeStyle #3 ea 09/15/22 10/19/22 Rx [place] 2 Sensor kit) insulin degludec 100 unit/mL (3 10 unit (0.1 mL) subcut QHS #15 mL 09/15/22 10/30/22 Rx mL) subcutaneous pen (Tresiba FlexTouch U-100 insulin) chlorhexidine gluconate 4 % 1 applic topical ONCE #237 mL 10/28/22 10/30/22 Rx topical liquid (Hibiclens) duloxetine 60 mg capsule,delayed 60 mg PO HS 10/30/22 10/30/22 History release empagliflozin 25 mg-metformin ER 1 tablet PO HS 10/30/22 10/30/22 History 1,000 mg tablet,extended release 24hr (Synjardy XR) metoprolol succinate 25 mg 25 mg PO HS 10/30/22 10/30/22 History tablet,extended release 24 hr (Toprol XL) valsartan 80 1 tablet PO HS 10/30/22 10/30/22 History mg-hydrochlorothiazide 12.5 mg tablet (Diovan HCT) Laboratory Tests 06/07/23 07:39 POC Capillary Glucose 162 H mg/dl (65-105) Patient hx anesthesia problems: none Family hx anesthesia problems: none Results Review: All pre-operative results and documents have been reviewed as part of the pre-operative evaluation. [facility] Past Medical History Medical History Abnormal MRI, spine BMI 35.0-35.9,adult BMI 36.0-36.9,adult BMI greater than 30 Chest pain Degenerative lumbar disc Essential (primary) hypertension Fibromyalgia Holter monitor, abnormal Hyponatremia Hypothyroidism Joint pain Low vitamin B12 level Lumbosacral radiculopathy due to degenerative joint disease of spine Need for vaccination Onychomycosis PAC (premature atrial contraction) Post-menopausal Thoracic degenerative disc disease Tremor Type 2 diabetes mellitus without complications Vitamin D deficiency, unspecified Family History Family History Father Hypertension Mother Hypertension Diabetes mellitus Gall stone Son No problems noted. 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
[2022-11-04] MEDS: ceFAZolin 2 GM/D5W 50 ML 2 GM/50 ML BAG IVPB (09:34)
[2022-11-04] MEDS: BUPivacaine HCL 0.5% 10 ML AMP 30 ML INFILTRATE (10:01)
--- NOTE | 2022-11-04 11:19 | W.PM.PROC2 ---
Procedure Note - Detailed Date of Procedure 11/04/22 Pre-op Diagnosis Rt Knee Medial Meniscus Tear Post-op Diagnosis Same Procedure Performed RIGHT KNEE SCOPE Surgeon Gregorio Thomas MD Anesthesia General Description of Procedure PATIENT WAS TAKEN TO THE OR. RIGHT LEG WAS PREPPED AND DRAPED STERILE. TROCARS WERE PLACED IN THE USUAL FASHION. CAMERA WAS INTRODUCED. THERE WAS SEVERE CHONDROMALACIA TO THE PATELLA FEMORAL JOINT. THERE WAS A LOT OF SYNOVITIS IN ALL COMPARTMENTS. THE MEDIAL COMPARTMENT SHOWED A LARGE AREA OF GRADE 3/4 CHONDROMALACIA TO GREATER THAN 50% OF THE MEDIAL FEMORAL CONDYLE. A SHAVER WAS USED TO PREFORM A CHONDROPLASTY. THERE WAS A COMPLEX MEDIAL MENISCUS TEAR. THE TEAR WAS RESECTED WITH A BITER AND A SHAVER DOWN TO A SMOOTH BASE. ABOUT 30% OF THE MENISCUS WAS REMOVED. THE ACL WAS INTACT. THE LATERAL MENISCUS WAS TORN AT THE JUNCTION OF THE ANTERIOR AND POSTERIOR HORN. THE TEAR WAS RESECTED. THE LATERAL COMPARTMENT HAD GRADE 2 CHONDROMALACIA AT THE LATERAL PLATEAU. CHONDROPLASTY WAS PREFORMED. A SYNOVECTOMY WAS PREFORMED WELL. THE PATELLO FEMORAL JOINT UNDERWENT CHONDROPLASTY. THERE WAS GRADE 3 AND 4 CHONDROMALACIA IN MOST OF THE TROCHLEA AND PART OF THE PATELLA. SYNOVECTOMY WAS PREFORMED IN THE SUPERIOR MEDIAL COMPARTMENT. THE WOUNDS WERE APPROXIMATED WITH 4.0 NYLON. STERILE DRESSING WAS APPLIED. PATIENT WAS EXTUBATED. Estimated Blood Loss 5 Complications No immediate complications Condition Stable Disposition PACU
[2022-11-04 11:23] LABS: Glucose Point of Care 169 mg/dl (65-105)
[2022-11-04] MEDS: traMADol HCL (*CRX) 50 MG TABLET PO (12:26)
== END 2022-11-04 13:26 | disposition home or self-care (01) ==
PROVIDERS: PCP Family Medicine; Visit Provider Orthopaedic Surgery
PROC: (CPT 29870; principal; 2022-11-04 09:00)
DX: M23.331 Other meniscus derangements, other medial meniscus, right knee (principal); M22.41 Chondromalacia patellae, right knee; M65.861 Other synovitis and tenosynovitis, right lower leg; I10 Essential (primary) hypertension; M79.7 Fibromyalgia; E03.9 Hypothyroidism, unspecified; E11.9 Type 2 diabetes mellitus without complications; E55.9 Vitamin D deficiency, unspecified; I49.1 Atrial premature depolarization; Z79.84 Long term (current) use of oral hypoglycemic drugs; Z79.4 Long term (current) use of insulin; F17.210 Nicotine dependence, cigarettes, uncomplicated; E66.9 Obesity, unspecified; Z68.36 Body mass index [BMI] 36.0-36.9, adult
CPT/HCPCS: 29880; 82948; A9270; J0690; J1100; J2370; J2405; J2704; J3010; J7120

== ENCOUNTER 2023-02-05 11:50 | Outpatient (CLI) | payer OTHER, SELFPAY ==
[2023-02-05 12:57] LABS: Vitamin D 25 Hydroxy 51.9 ng/mL
== END 2023-02-05 11:51 | disposition home or self-care (01) ==
PROVIDERS: PCP Family Medicine; Visit Provider Nurse Practitioner Family
DX: E55.9 Vitamin D deficiency, unspecified (principal)
CPT/HCPCS: 36415; 82306

== ENCOUNTER 2023-03-01 14:38 | Outpatient (CLI) | payer OTHER, SELFPAY ==
[2023-03-01 15:20] LABS: Hematocrit 53.4 % (37.0-47.0); Hemoglobin 16.9 g/dL (12.0-15.0); Mean Corpuscular HGB Conc 31.6 g/dl (32-36); Mean Corpuscular Hemoglobin 28.5 pg (26-34); Mean Corpuscular Volume 90.1 fl (80-100); Mean Platelet Volume 9.5 fl (7.4-10.4); Platelet Count Result 349 k/mm3 (150-375); Red Blood Count 5.93 M/mm3 (4.2-5.4); Red Cell Distribution Width 13.9 % (11.5-14.5); White Blood Count 13.9 K/mm3 (4.5-10.0)
[2023-03-01 16:01] LABS: Iron 69 ug/dL (37-170)
[2023-03-01 16:13] LABS: Percent Iron Saturation 17 % (20-50)
== END 2023-03-01 14:39 | disposition home or self-care (01) ==
LOC: ANHLAB 14:39
PROVIDERS: PCP Family Medicine; Visit Provider Nurse Practitioner Family
DX: D64.9 Anemia, unspecified (principal)
CPT/HCPCS: 36415; 83540; 83550; 85027

== ENCOUNTER 2023-03-19 14:57 | Outpatient (CLI) | payer OTHER, SELFPAY ==
[2023-03-19 15:27] LABS: Basophils Absolute Auto 0.1 K/mm3 (0.0-0.1); Basophils Percent Auto 0.6 % (0.2-1.2); Eosinophils Absolute Auto 0.3 K/mm3 (0-0.3); Eosinophils Percent Auto 1.9 % (0-4.4); Hematocrit 50.1 % (37.0-47.0); Immature Granulocyte Absolute 0.07 K/mm3 (0.00-0.031); Immature Granulocyte Percent A 0.5 % (0-0.5); Lymphocytes Absolute Auto 3.78 K/mm3 (0.9-3.2); Lymphocytes Percent Auto 26.9 % (18.3-44.2); Mean Corpuscular HGB Conc 31.9 g/dl (32-36); Mean Corpuscular Hemoglobin 28.6 pg (26-34); Mean Corpuscular Volume 89.5 fl (80-100); Mean Platelet Volume 9.5 fl (7.4-10.4); Monocytes Absolute Auto 1.2 K/mm3 (0.1-0.6); Monocytes Percent Auto 8.4 % (2.6-8.5); Neutrophils Absolute Auto 8.7 K/mm3 (1.3-6.7); Neutrophils Percent Auto 61.7 % (45.5-73.1); Platelet Count Result 345 k/mm3 (150-375); Red Cell Distribution Width 14.2 % (11.5-14.5); White Blood Count 14.1 K/mm3 (4.5-10.0)
[2023-03-19 16:15] LABS: Iron 57 ug/dL (37-170)
[2023-03-19 16:17] LABS: Alanine Aminotransferase 15 U/L (6-35); Albumin Level 4.8 g/dL (3.5-5.1); Alkaline Phosphatase 89 U/L (38-126); Anion Gap 8 mmol/L (8-16); Aspartate Amino Transferase 43 U/L (14-36); Bilirubin,Total 0.5 mg/dL (0.2-1.3); Blood Urea Nitrogen 18 mg/dL (7-17); CRP 2.9 mg/dL (<1.0); Calcium 9.7 mg/dL (8.4-10.2); Carbon Dioxide 32 mmol/L (22-30); Chloride 101 mmol/L (98-107); Estimated Glomerular Filt Rate > 60; Glucose 179 mg/dL (65-110); Potassium 3.9 mmol/L (3.4-5.0); Sodium 141 mmol/L (137-145)
[2023-03-19 16:24] LABS: Percent Iron Saturation 14 % (20-50)
[2023-03-20 11:37] LABS: Erythrocyte Sedimentation Rate 11 mm/hr (0-20)
[2023-03-23 15:33] LABS: Erythropoietin (EPO) 16.2 mIU/mL (2.6-18.5)
== END 2023-03-19 14:58 | disposition home or self-care (01) ==
PROVIDERS: PCP Family Medicine; Visit Provider Internal Medicine Hematology & Oncology
DX: D72.829 Elevated white blood cell count, unspecified (principal); D75.1 Secondary polycythemia; E61.1 Iron deficiency
CPT/HCPCS: 36415; 80053; 82668; 83540; 83550; 85025; 85652; 86140; 88184

== ENCOUNTER 2023-04-06 13:54 | Outpatient (CLI) | payer OTHER, SELFPAY ==
[2023-04-11 15:14] LABS: CALR Exon 9 Mutation Not Detected (Not Detected); CSF3R Exon 14/17 Mutation Not Detected (Not Detected); JAK2 Exon 12 Mutation Not Detected (Not Detected); JAK2 V617F Mutation Not Detected (Not Detected); MPL Exon 10 Mutation Not Detected (Not Detected); Specimen Source Blood
== END 2023-04-06 13:55 | disposition home or self-care (01) ==
LOC: ANHLAB 13:56
PROVIDERS: PCP Family Medicine; Visit Provider Internal Medicine Hematology & Oncology
DX: D75.1 Secondary polycythemia (principal)
CPT/HCPCS: 36415; 81219; 81270; 81279; 81339; 81479

== ENCOUNTER 2023-05-03 12:00 | Outpatient (CLI) | payer OTHER, SELFPAY ==
--- NOTE | ~2023-05-03 | XR_ITS ---
EXAMINATION: XR lumbar spine 6V w bending DATE: 05/03/2023 12:35 INDICATION: Low back pain, unspecified. TECHNIQUE: 7 views of lumbar spine including flexion and extension views were obtained. COMPARISON: MR spine radiographs 03/19/2021, MRI 10/29/2021 FINDINGS: There is 17 degrees levoscoliosis of thoracolumbar spine. Vertebral body heights are normal . There are endplate osteophytes at multiple levels. Intervertebral disc heights are normal in lumbar spine. The spine is hypomobile with flexion and extension. There is multilevel facet joint osteoarth ritis, severe bilaterally at L4-L5 and L5-S1. IMPRESSION: 1. Mild lumbar spondylosis. 2. Thoracolumbar dextroscoliosis. Reviewed, dictated and finalized at location E. DREN'S LUNCHROOM SUPERVISOR
== END 2023-05-03 12:01 | disposition home or self-care (01) ==
PROVIDERS: PCP Family Medicine; Visit Provider Family Medicine
DX: M54.50 Low back pain, unspecified (principal); M43.06 Spondylolysis, lumbar region; M41.85 Other forms of scoliosis, thoracolumbar region
CPT/HCPCS: 72114

== ENCOUNTER 2023-09-09 04:21 | Emergency (ER) | payer BC, SELFPAY ==
--- NOTE | ~2023-09-09 | XR_ITS ---
Right foot Technique: AP, oblique, and lateral views were obtained. Clinical History: Great toe pain Findings: No acute fracture or dislocation is seen. Osseous alignment is anatomic. Joint spaces are p reserved without erosive or degenerative change. Soft tissues are unremarkable. Impression: Unremarkable right foot radiographs. Reviewed, dictated and finalized at [facility]. Impression: Unremarkable right foot radiographs.
[2023-09-09 04:24] VITALS: BP 130/88; PULSE 86; RESP 18; TEMP 36.8; O2SAT 100
[2023-09-09 05:38] LABS: Basophils Absolute Auto 0.1 K/mm3 (0.0-0.1); Basophils Percent Auto 0.5 % (0.2-1.2); Eosinophils Absolute Auto 0.3 K/mm3 (0-0.3); Eosinophils Percent Auto 2.4 % (0-4.4); Hematocrit 51.2 % (37.0-47.0); Hemoglobin 16.3 g/dL (12.0-15.0); Immature Granulocyte Absolute 0.08 K/mm3 (0.00-0.031); Immature Granulocyte Percent A 0.6 % (0-0.5); Mean Corpuscular HGB Conc 31.8 g/dl (32-36); Mean Corpuscular Hemoglobin 28.6 pg (26-34); Mean Platelet Volume 9.4 fl (7.4-10.4); Monocytes Absolute Auto 1.1 K/mm3 (0.1-0.6); Monocytes Percent Auto 7.7 % (2.6-8.5); Neutrophils Absolute Auto 7.8 K/mm3 (1.3-6.7); Neutrophils Percent Auto 55.8 % (45.5-73.1); Platelet Count Result 298 k/mm3 (150-375); Red Blood Count 5.69 M/mm3 (4.2-5.4); Red Cell Distribution Width 14.2 % (11.5-14.5)
--- NOTE | 2023-09-09 05:47 | ED.GENADULT ---
HPI - General Adult General Chief complaint: Extremity Problem,Nontraumatic Stated complaint: toe pain Time Seen by Provider: 09/09/23 04:59 History of Present Illness HPI narrative: patient is 62-year-old female presents emergency department with chief complaint of redness swelling to the right great toe. Patient reports for last 2 days she has had pain base of the great toe. Patient reports the area got red reports that is painful reports no trauma does report she is diabetic. Patient reports no prior history of gout Related Data Home Medications Medication Instructions Recorded Confirmed empagliflozin 25 mg-metformin ER 1 tablet PO HS 10/30/22 04/29/23 1,000 mg tablet,extended release 24hr (Synjardy XR) Allergies Allergy/AdvReac Type Severity Reaction Status Date / Time aspirin Allergy Unknown Hives Verified 02/09/23 13:59 clopidogrel Allergy Unknown HIVES, Verified 02/09/23 13:59 SWELLING codeine Allergy Unknown Nausea, Verified 02/09/23 13:59 HIVES ibuprofen Allergy Unknown GI BLEEDING Verified 02/09/23 13:59 NSAIDS (Non-Steroidal AdvReac GI BLEEDING Verified 02/09/23 13:59 Anti-Inflamma Review of Systems Review of Systems: A 10 system review of systems was completed on the patient and is negative except for what is stated in the HPI. Nursing and ancillary documentation was reviewed. [facility] Past Medical History Medical History Abnormal MRI, spine BMI 35.0-35.9,adult BMI 36.0-36.9,adult Chest pain Degenerative lumbar disc Dietary iron deficiency without anemia Elevated hemoglobin Essential (primary) hypertension Fibromyalgia GI bleed due to NSAIDs History of torn meniscus of knee Holter monitor, abnormal Hyponatremia Hypothyroidism Joint pain Leukocytosis Low vitamin B12 level Lumbar pain Lumbosacral radiculopathy due to degenerative joint disease of spine Onychomycosis PAC (premature atrial contraction) Post-menopausal Thoracic degenerative disc disease Tremor Type 2 diabetes mellitus without complications Vitamin D deficiency, unspecified Family History Family History Father Hypertension Mother Hypertension Diabetes mellitus Gall stone Son No problems noted. Sibling Hypertension Gall stone Other Family history of malignant neoplasm of brain Social History Social History Smoking packs per day: 1 Smoking cigarettes per day: 20.0 Years smoked: 25 Smoking pack-years: 25.00 Smoking status: Current every day smoker Tobacco type: cigarettes Second hand tobacco smoke exposure: No Additional smoking assessment comments: SMOKED 2 PACKS/ DAY X 20, 1 PACK/DAY X20 Alcohol intake: current Substance use: never Substance use type: does not use Lack of Transportation: No Lack of Food: Never True Current Housing: I Have Housing Concerned About Future Housing: No Difficulty Paying Gas/Electric Bills: No Difficulty Paying for Meds: No Currently Unemployed: No Education: High School Diploma/GED Difficulty w/ Childcare or Family Care: No Living arrangements: with family Additional living arrangements comments: [facility] 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 HEAD: Normocephalic, atraumatic. EYES: PERRLA and EOMI. ENT: Nares clear, no rhinorrhea or epistaxis. Mucous membranes moist. NECK: Supple. CHEST: Clear to auscultation. No respiratory distress. HEART: Regular rate and rhythm. No murmur heard. Normal peripheral pulses. ABDOMEN: Soft, nontender, nondistended, normal active bowel sounds. EXTREMIT
[2023-09-09 05:52] LABS: Alanine Aminotransferase 13 U/L (6-35); Albumin Level 4.7 g/dL (3.5-5.1); Alkaline Phosphatase 109 U/L (38-126); Anion Gap 9 mmol/L (4-12); Aspartate Amino Transferase 28 U/L (14-36); Bilirubin,Total 0.4 mg/dL (0.2-1.3); Blood Urea Nitrogen 23 mg/dL (7-17); Calcium 10.2 mg/dL (8.4-10.2); Carbon Dioxide 28 mmol/L (22-30); Chloride 102 mmol/L (98-107); Estimated CRCL calculation 86 ml/min; Estimated Glomerular Filt Rate > 60; Glucose 178 mg/dL (65-110); Potassium 4.1 mmol/L (3.4-5.0); Sodium 139 mmol/L (137-145)
[2023-09-09 06:43] VITALS: BP 128/84; PULSE 68; RESP 18; O2SAT 97
== END 2023-09-09 06:46 | disposition home or self-care (01) ==
PROVIDERS: Emergency Provider Emergency Medicine; PCP Family Medicine
DX: L03.115 Cellulitis of right lower limb (principal); M25.571 Pain in right ankle and joints of right foot; I10 Essential (primary) hypertension; E03.9 Hypothyroidism, unspecified; E11.9 Type 2 diabetes mellitus without complications; E55.9 Vitamin D deficiency, unspecified; D50.8 Other iron deficiency anemias; M79.7 Fibromyalgia; M47.26 Other spondylosis with radiculopathy, lumbar region; F17.210 Nicotine dependence, cigarettes, uncomplicated
CPT/HCPCS: 36415; 73630; 80053; 85025; 99283

== ENCOUNTER 2024-01-01 08:32 | Outpatient (CLI) | payer BC, SELFPAY ==
--- NOTE | ~2024-01-01 | XR_ITS ---
XR shoulder RT min 2V DATE: 01/01/2024 09:29 INDICATION: Right shoulder pain TECHNIQUE: 4 views COMPARISON: None FINDINGS: There is osteopenia. No fracture, dislocation, periosteal reaction or bone destruction or is noted. Focal calcific deposit at the lateral aspect of the shoulder consistent with calcific rotator cuff te ndinopathy. IMPRESSION: Calcific rotator cuff tendinopathy Reviewed, dictated and finalized at location J.
--- NOTE | ~2024-01-01 | XR_ITS ---
XR shoulder LT min 2V DATE: 01/01/2024 09:29 INDICATION: Left shoulder pain TECHNIQUE: 4 views COMPARISON: None FINDINGS: Osteopenia. No fracture, dislocation, periosteal reaction or bone destruction. Some calcium deposits adjacent to the humeral head are consistent with calcific tendinopathy of the r otator cuff. IMPRESSION: Rotator cuff calcific tendinopathy Reviewed, dictated and finalized at location J.
--- NOTE | ~2024-01-01 | XR_ITS ---
XR lumbar spine 6V w bending DATE: 01/01/2024 09:29 INDICATION: Back pain, radiculopathy TECHNIQUE: Flexion and extension lateral views. AP, lateral, cone-down lateral lumbosacral and bilate ral oblique views. COMPARISON: 05/03/2023 lumbar spine FINDINGS: Minimal thoracolumbar levoscoliosis. Included lower thoracic and lumbar pedicles are intact. No fracture or bone destruction or spondyloly sis. Mild degenerative disease at L1-2. Remaining lumbar level secondary spaces appear relatively well pre served. There is prominent degenerative change at the apophyseal joints at L4-5 and L5-S1 with associated gra de 1 anterolisthesis at L4-5. There is no instability on flexion or extension. No fracture or bone destruction is evident. Lumbar level secondary spaces are relatively well preserv ed. IMPRESSION: Grade 1 anterolisthesis at L4-5 due to degenerative change at the apophyseal joints Mild degenerative disc disease, primarily at L1-2 Reviewed, dictated and finalized at location J. IMPRESSION: Grade 1 anterolisthesis at L4-5 due to degenerative change at the a pophyseal joints Mild degenerative disc disease, primarily at L1-2
--- NOTE | ~2024-01-01 | XR_ITS ---
XR cervical spine min 6V DATE: 01/01/2024 09:29 INDICATION: Pain TECHNIQUE: AP, lateral, open-mouth, bilateral oblique views. Flexion and extension lateral views. COMPARISON: None FINDINGS: C1 and C2 are normally aligned and the odontoid process is intact. No fracture or dislocation or lock ed facet or prevertebral soft tissue swelling is detected. There is moderately severe degenerative disc disease at C4-5, C5-6, severe degenerative disc disease at C6-7. There is mild anterolisthesis at C3-4 and C4-5, with little change in flexion, extension and neutral. There is uncovertebral joint spurring encroachment on the anterior aspect of the C6 and C7 neural for mayda, more prominent on the left. There is degenerative change at the apophyseal joints throughout the cervical spine. IMPRESSION: Prominent cervical spondylosis Reviewed, dictated and finalized at location J.
[2024-01-01 09:10] LABS: Basophils Absolute Auto 0.1 K/mm3 (0.0-0.1); Basophils Percent Auto 0.9 % (0.2-1.2); Eosinophils Absolute Auto 0.4 K/mm3 (0-0.3); Eosinophils Percent Auto 2.7 % (0-4.4); Hematocrit 55.8 % (37.0-47.0); Hemoglobin 17.4 g/dL (12.0-15.0); Immature Granulocyte Absolute 0.07 K/mm3 (0.00-0.031); Immature Granulocyte Percent A 0.5 % (0-0.5); Lymphocytes Percent Auto 37.7 % (18.3-44.2); Mean Corpuscular HGB Conc 31.2 g/dl (32-36); Mean Corpuscular Hemoglobin 28.8 pg (26-34); Mean Corpuscular Volume 92.2 fl (80-100); Mean Platelet Volume 9.5 fl (7.4-10.4); Monocytes Percent Auto 7.3 % (2.6-8.5); Neutrophils Absolute Auto 6.9 K/mm3 (1.3-6.7); Neutrophils Percent Auto 50.9 % (45.5-73.1); Platelet Count Result 326 k/mm3 (150-375); Red Blood Count 6.05 M/mm3 (4.2-5.4); Red Cell Distribution Width 14.7 % (11.5-14.5); White Blood Count 13.5 K/mm3 (4.5-10.0)
[2024-01-01 09:24] LABS: Alanine Aminotransferase 12 U/L (6-35); Albumin Level 4.9 g/dL (3.5-5.1); Alkaline Phosphatase 87 U/L (38-126); Anion Gap 11 mmol/L (4-12); Aspartate Amino Transferase 25 U/L (14-36); Bilirubin,Total 0.7 mg/dL (0.2-1.3); Blood Urea Nitrogen 19 mg/dL (7-17); Calcium 9.6 mg/dL (8.4-10.2); Carbon Dioxide 33 mmol/L (22-30); Chloride 98 mmol/L (98-107); Cholesterol 195 mg/dL (0-200); Estimated Glomerular Filt Rate > 60; Glucose 198 mg/dL (65-110); HDL Direct 64 mg/dL; Potassium 3.9 mmol/L (3.4-5.0); Sodium 142 mmol/L (137-145); Triglycerides 192 mg/dL (<150)
[2024-01-01 09:30] LABS: Iron 116 ug/dL (37-170)
[2024-01-01 09:36] LABS: LDL Cholesterol Direct 91 mg/dL
[2024-01-01 09:41] LABS: Percent Iron Saturation 27 % (20-50)
[2024-01-01 09:42] LABS: Hemoglobin A1C 9.2 % (<5.7)
[2024-01-01 09:47] LABS: Free T4 Free Thyroxine 1.03 ng/mL (0.78-2.19); Vitamin D 25 Hydroxy 44.7 ng/mL
[2024-01-01 12:06] LABS: Erythrocyte Sedimentation Rate 4 mm/hr (0-20)
[2024-01-01 12:55] LABS: Creatinine Urine 61.4 mg/dL
[2024-01-01 12:58] LABS: MALB Creatinine Ratio 10.7 mg/g (0-30); Microalbumin Urine Random 6.6 mg/L (0-16.7)
== END 2024-01-01 08:33 | disposition home or self-care (01) ==
LOC: ANHLAB 08:34
PROVIDERS: PCP Family Medicine; Visit Provider Family Medicine
DX: M75.32 Calcific tendinitis of left shoulder (principal); M75.31 Calcific tendinitis of right shoulder; M47.812 Spondylosis without myelopathy or radiculopathy, cervical region; M43.16 Spondylolisthesis, lumbar region; M47.27 Other spondylosis with radiculopathy, lumbosacral region; M51.36 Other intervertebral disc degeneration, lumbar region; E61.1 Iron deficiency; E03.9 Hypothyroidism, unspecified; E11.9 Type 2 diabetes mellitus without complications; R20.0 Anesthesia of skin; E78.5 Hyperlipidemia, unspecified; E87.1 Hypo-osmolality and hyponatremia; E53.8 Deficiency of other specified B group vitamins; E55.9 Vitamin D deficiency, unspecified; Z13.220 Encounter for screening for lipoid disorders
CPT/HCPCS: 36415; 72052; 72114; 73030; 80048; 80061; 80076; 82043; 82306; 82607; 82728; 83036; 83540; 83550; 84439; 84443; 85025; 85652

== ENCOUNTER 2024-02-10 11:35 | Outpatient (CLI) | payer BC, SELFPAY ==
[2024-02-10 12:31] LABS: Free T4 Free Thyroxine 0.91 ng/mL (0.78-2.19)
== END 2024-02-10 11:36 | disposition home or self-care (01) ==
LOC: ANHLAB 11:37
PROVIDERS: PCP Family Medicine; Visit Provider Family Medicine
DX: E03.9 Hypothyroidism, unspecified (principal)
CPT/HCPCS: 36415; 84439; 84443

== ENCOUNTER 2024-03-30 13:47 | Outpatient (CLI) | payer BC, SELFPAY ==
--- NOTE | ~2024-03-30 | MR_ITS ---
MRI of the lumbar spine Clinical History: Spondylosis, radiculopathy Technique: Axial T2-weighted images, and sagittal T1-weighted, T2-weighted, and T2 fat-sat images wer e acquired. COMPARISON: 10/29/2021 Findings: There is no fracture or subluxation of the lumbar spine. Vertebral bodies maintain normal h eight and alignment. Bone marrow signals are unremarkable. At L1-L2 and L2-L3, there is no disc bulge or herniation. There is moderate facet hypertrophy. No spi nal canal stenosis or neural foraminal narrowing at these levels. At L3-L4, there is minimal disc desiccation and minimal disc bulge. There is moderate facet arthropat hy. No central canal stenosis or neural foraminal narrowing. At L4-L5, there is minimal disc bulge with severe facet arthropathy. No central canal stenosis. There is moderate bilateral neural foraminal narrowing. At L5-S1, there is no disc bulge or herniation. There is moderate facet arthropathy. No central canal stenosis. There is moderate bilateral neural foraminal narrowing, left worse than right. Paravertebral soft tissues are unremarkable. Impression: [id number] degenerative spondylosis, as above. Reviewed, dictated and finalized at location . Impression: [id number] degenerative spondylosis, as above.
--- NOTE | ~2024-03-30 | XR_ITS ---
3 VIEWS THORACIC SPINE Ordering provider: Eugenio Schroeder MD History: . M54.6 - Pain in thoracic spine RADIATING INTO LOWER BACK . Comparison: None. FINDINGS: VERTEBRAL BODIES: Normal height and alignment. No visible fracture or subluxation. Degenerative chris es of the spine. DISK SPACES: Narrowing of the disc spaces in the mid and lower thoracic area. SOFT TISSUES: Normal. IMPRESSION: No definite acute osseous abnormality of the thoracic spine. Multilevel degenerative disc disease. Reviewed, dictated and finalized at location A. IMPRESSION: No definite acute osseous abnormality of the thoracic spine. Multilevel degener ative disc disease.
== END 2024-03-30 13:48 | disposition home or self-care (01) ==
LOC: ANHIMG 13:50
PROVIDERS: PCP Family Medicine; Visit Provider Family Medicine
DX: M51.34 Other intervertebral disc degeneration, thoracic region (principal); M47.27 Other spondylosis with radiculopathy, lumbosacral region
CPT/HCPCS: 72072; 72148

== ENCOUNTER 2024-06-13 12:46 | Outpatient (CLI) | payer BC, SELFPAY ==
[2024-06-13 13:24] LABS: Hematocrit 53.7 % (37.0-47.0); Hemoglobin 16.9 g/dL (12.0-15.0); Mean Corpuscular HGB Conc 31.5 g/dl (32-36); Mean Corpuscular Hemoglobin 28.1 pg (26-34); Mean Corpuscular Volume 89.2 fl (80-100); Mean Platelet Volume 9.8 fl (7.4-10.4); Platelet Count Result 310 k/mm3 (150-375); Red Blood Count 6.02 M/mm3 (4.2-5.4); Red Cell Distribution Width 14.4 % (11.5-14.5); White Blood Count 11.6 K/mm3 (4.5-10.0)
[2024-06-13 13:54] LABS: Erythrocyte Sedimentation Rate 5 mm/hr (0-20)
[2024-06-13 15:15] LABS: Iron 91 ug/dL (37-170)
[2024-06-13 15:27] LABS: Percent Iron Saturation 22 % (20-50)
[2024-06-15 06:39] LABS: CRP, High Sensitivity 11.7 mg/L
== END 2024-06-13 12:47 | disposition home or self-care (01) ==
LOC: ANHLAB 12:47
PROVIDERS: PCP Family Medicine; Visit Provider Family Medicine
DX: D58.2 Other hemoglobinopathies (principal)
CPT/HCPCS: 36415; 82728; 83540; 83550; 85027; 85652; 86141

== ENCOUNTER 2024-12-26 09:36 | Outpatient (CLI) | payer BC, SELFPAY ==
--- OUTSIDE RECORDS SUMMARY | 2024-12-26 09:46 | XMS_ITS | Encounter Summary ---
Author Organization [facility] Address [address] [address] Care Team Providers Care Software Designer Name Role Phone Eugenio Schroeder MD Primary Care Provider [phone] Encounter Details Date Type Department Care Team (Late st Contact Info) Description 09/05/2017 Lab Requisition [facility] Care Pathology Lab [address] [place] [address] Tito Shetty MD [address] [place] [address] Abnormal finding of blood chemistry Social History Tobacco Use Types Packs/Day Years Used Date Smoking Tobacco: Never Assessed Comments Unknown Sex and Gender Information Value Date Recorded Sex Assigned at Not on file Legal Sex Female 4:59 PM CDT Gender Identity Not on file Sexual Orientation Not on file documented as of this encounter Plan of Treatment Not on file documented as of this encounter Procedures Procedure Name Priority Date/Time Associated Diagnosis Comments FLOW CYTOMETRY BLOOD PROFILE Routine 09/03/2017 3:24 PM CDT Abnormal finding of blood chemistry documented in this encounter Results * FLOW CYTOMETRY BLOOD PROFILE (09/03/2017 3:24 PM CDT) Case Report Flow Cytometry Case: [id number] Authorizing Provider: Tito Shetty MD Collected: 09/03/2017 03:24 PM Pathologist: Flor Vega MD Received: 09/05/2017 01:35 PM Specimen: Blood 12:51 PM CDT [facility] Final Diagnosis Peripheral blood, Fl ow cytometric immunophenotypic analysis (09/05/17): - No evidence of non-Hodgkin lymphoma or acute leukemia. - See description. 12:51 PM [facility] at 1251 CDT Flow Cytometry Results Differential Result Comment WBC Count /uL [id number] Total Viability % 99 Lymphocytes % 34 Dim CD45 Region % 2 Monocytes % 8 Granulocytes % 56 12:51 PM [facility] Flow Cytometry Interpretation # of markers performed: 16 Markers: CD1a, CD2, CD3, CD4, CD5, CD7, CD8, CD10, CD19, CD20, CD23, CD30, CD34, CD45, kappa, lambda The peripheral blood specimen has a viability of 99%. Within the lymphocyte gate, there is no monotypicB-cell population identified (kappa to lambda ratio = 1.6), and CD5 and CD10 are not expressed on mature B-cells. There is no immunophenotypically aberrant or expanded T-cell population seen (CD4 to CD8 ratio = 2.3). [id number] blasts account for 0.5% of events analyzed. A peripheral blood smear prepared from the flow cytometry specimen is reviewed for quality improvement analyst purposes. The peripheral blood specimen shows no evidence of involvement by non-Hodgkin lymphoma or acute leukemia. Correlation with clinical findings is recommended. KM/FINANCIAL SALES MANAGER/chief vendor quality 12:51 PM [facility] Reason for test Abnormal finding of blood chemistry 790.6 12:51 PM [facility] Client Specimen ID # [id number] 12:51 PM [facility] Disclaimer Test performed at [facility], [address] [place] [address], [address]. *The established laboratory minimum viability is 70%. Values below the minimum may result in the failure to find an abnormal population of cells. This test was developed and its performance characteristics determined by the Flow Cytometry Laboratory. It has not been cleared by the [place] Food and Drug Administration (FDA). The FDA has determined that such clearance or approval is not necessary. This test is used for clinical purposes. It should not be regarded as investigational or for research. This laboratory is regulated under the Clinical Laboratory Improvement Amendments of 1998 (CLIA) as a qualified to perform high complexity clinical testing. 8 12:51 PM CDT [facility] PATHOLOG[facility] Embedded Images 8 12:51 PM CDT [facility] Blood BLOOD SPECIMEN / Unknown 09/03/2017 3:24 PM CDT 09/05/2017 1:35 PM CDT us Tito Shetty MD LAB - PATHOLOGY/CYTOLOGY ORDERA BLES Final Result [facility] PATHOLOG[facility] LAB [address] [phone] documented in this encounter Visit Diagnoses Diagnosis Abnormal finding of blood chemistry Other abnormal blood chemistry documented in this encounter Care Teams Software Designer Relationship Specialty Start Date End Date Eugenio Schroeder MD [address] [place] [address] PCP - General 09/21/17 documented as of this encounter
--- OUTSIDE RECORDS SUMMARY | 2024-12-26 09:46 | XMS_ITS | Clinical Summary ---
Author Organization [facility] Address [address] [place] [address] Care Team Providers Care Database Management System Specialist Name Role Phone Eugenio Schroeder MD Primary Care Provider [phone] Source Comments [facility],non-owned Affiliates and Associated Physician Practices is amultiple site organization consisting of ambulatory clinics and hospital sitesin [place], [place], [place] and [place]. This disclosure is being madepursuant to the Care Everywhere program and may not contain all information available regarding this patient. Last updated 18.[facility] Allergies Active Allergy Reactions Criticality Noted Date Comments Aspirin Swelling 09/16/2017 Codeine Swelling 09/16/2017 Ibuprofen Swelling 09/16/2017 Clopidogrel Swelling 09/16/2017 Medications * Be aware that medications may not be up to date on this document. Alwaysverify current medications with the patient. acetaminophen (TYLENOL) 325 MG tablet Take 325 mg by mouth every 6 hours as needed for Pain Maximum allowable Acetaminophen amount = 4 Grams (4000 mg) / 24 hours. Active losartan - hydroCHLOROthiazide (HYZAAR) 50-12.5 MG tablet Take 1 tablet by mouth once daily Active metFORMIN (GLUCOPHAGE) 500 MG tablet Take 500 mg by mouth 2 times daily with morning and evening meal Active Multiple Vitamin (MULTI VITAMIN PO) Take 1 tablet by mouth once daily Active predniSONE (DELTASONE) 10 MG tablet Take 10 mg by mouth once daily Active tiZANidine (ZANAFLEX) 4 MG tablet Take 4 mg by mouth every 6 hours as needed Active traMADol (ULTRAM) 50 MG tablet Take 50 mg by mouth every 6 hours as needed Active Social History Tobacco Use Types Packs/Day Years Used Date Smoking Tobacco: Never Assessed Comments Unknown Sex and Gender Information Value Date Recorded Sex Assigned at Not on file Legal Sex Female 4:59 PM CDT Gender Identity Not on file Sexual Orientation Not on file Last Filed Vital Signs Vital Sign Reading Time Taken Comments Blood Pressure 150/82 09/03/2017 2:37 PM CDT Pulse 94 09/03/2017 2:37 PM CDT Temperature 36.4 C (97.6 F) 09/03/2017 2:37 PM CDT Respiratory Rate 20 09/03/2017 2:37 PM CDT Oxygen Saturation 97% 09/03/2017 2:37 PM CDT Inhaled Oxygen Concentration - - Weight 106.7 kg (235 lb 4.8 oz) 09/03/2017 2:37 PM CDT Height 165.1 cm (5' 5) 09/03/2017 2:37 PM CDT Body Mass Index 39.16 09/03/2017 2:37 PM CDT Plan of Treatment Health Maintenance Due Date Last Done Comments BONE DENSITY TESTING 1959 COLOGUARD (AGES 45-75) - COL ON CA SCREENING 1959 COLON MONITORING 1959 COLONOSCOPY - COLON CA SCREENING [address] CT COLONOGRAPHY - COLON CA SCREENING 1959 Colorectal Cancer Screening 1959 FIT - COLON CA SCREENING 1959 FLEX SIG - COLON CA SCREENING 1959 LIPID TESTING 1959 MAMMOGRAM 1959 HIV SCREENING 09/18/1974 HEPATITIS C SCREENING 09/14/1977 DTAP/TDAP/TD VACCINES (1 - Tdap) 09/18/1978 PNEUMOCOCCAL VACCINE 50+ (1 of 1 - PCV) 09/18/2009 ZOSTER VACCINE (1 of 2) 09/18/2009 COVID-19 VACCINE ( - 2023-2 5 season) 2024 DEPRESSION SCREENING 05/31/2024 INFLUENZA VACCINE (#1) 2025 Respiratory Syncytial Virus (RSV) Vaccine Pt: or over 60 yrs (1 - 1-dose 75+ series) 09/18/2034 HEPATITIS B VACCINE Aged Out No longe r eligible based on patient's age to complete this topic HIB VACCINE Aged Out No longer eligi ble based on patient's age to complete this topic HPV VACCINE Aged Out No longer eligi ble based on patient's age to complete this topic MENINGOCOCCAL (Group B) VACC INE SHARED DECISION-MAKING Aged Out No longer eligibl e based on patient's age to complete this topic MENINGOCOCCAL GROUPS A/C/Y/W VACCINE Aged Out No longer eligible b ased on patient's age to complete this topic Insurance [facility] Address: [facility] [id number] [place] [address] [facility] Care Teams Database Management System Specialist Relationship Specialty Start Date End Date Eugenio Schroeder MD [address] [place] [address] PCP - General 09/21/17
--- OUTSIDE RECORDS SUMMARY | 2024-12-26 09:46 | XMS_ITS | Clinical Summary ---
Author Organization [facility] Address [address] [place] [address] Care Team Providers Care Atmospheric Drier Tender Name Role Phone Eugenio Schroeder MD Primary Care Provider [phone] Allergies Active Allergy Reactions Criticality Noted Date Comments Aspirin Hives,Swelling High 09/18/2013 Reaction: Hives, , , Clopidogrel Hives,Swelling High 09/16/2017 Reaction: Hives, , , Codeine Hives,Swelling High 09/16/2017 Reaction: Hives, , , Ibuprofen Nausea and Vomiting,Swelling Low 09/16/2017 Reaction: Nausea, , , Medications DULoxetine (CYMBALTA) 60 mg Capsule, Delayed Release(E.C.) 02/25/2023 Activ e Synjardy XR 25-1,000 mg tablet, IR & ER, biphasic 24hr Take 1 Tablet by mouth daily in the morning. 01/07/2023 Active losartan-hydroCH LOROthiazide (HYZAAR) 50-12.5 mg tablet Take 1 Tablet by mouth daily. Active metFORMIN (GLUCOPHAGE) 500 mg tablet Take 500 mg by mouth. Active tiZANidine (ZANAFLEX) 4 mg Tablet Take 4 mg by mouth. Active traMADoL (ULTRAM) 50 mg tablet Take by mouth. Active cholecalciferol 1,250 mcg (50,000 unit) Capsule Take by mouth. Active Active Problems Problem Noted Date Diagnosed Date Inflammation of left sacroiliac joint 11/28/2020 Spondylolisthesis at L4-L5 level 11/28/2020 Synovial cyst of lumbar facet joint 11/28/2020 Fibromyalgia 11/28/2020 Cigarette smoker 11/28/2020 Exogenous obesity 11/28/2020 Family History Medical History Relation Name Comments Diabetes Brother Diabetes Daughter 2 Diabetes Father Diabetes Mother Relation Name Status Comments Brother Alive Daughter 1 Alive Daughter 2 Alive Daughter 3 Alive Father Mother Alive Sister Alive Social History Tobacco Use Types Packs/Day Years Used Date Smoking Tobacco: Every Day Cigarettes Smokeless Tobacco: Never Alcohol Use Standard Drinks/Week Comments Not Currently 0 (1 standard drink = 0.6 oz pur e alcohol) Comments Unknown Sex and Gender Information Value Date Recorded Sex Assigned at Not on file Legal Sex Female 1:13 PM CDT Gender Identity Not on file Sexual Orientation Not on file Last Filed Vital Signs Vital Sign Reading Time Taken Comments Blood Pressure 143/72 04/15/2023 2:02 PM ELECTRIC SIGN WIRER Pulse 89 04/15/2023 2:00 PM ELECTRIC SIGN WIRER Temperature 35.9 C (96.6 F) 04/15/2023 2:00 PM ELECTRIC SIGN WIRER Respiratory Rate 10 04/15/2023 2:00 PM ELECTRIC SIGN WIRER Oxygen Saturation 97% 04/15/2023 2:00 PM ELECTRIC SIGN WIRER Inhaled Oxygen Concentration - - Weight 76.2 kg (168 lb) 04/15/2023 2:00 PM ELECTRIC SIGN WIRER Height 165.1 cm (5' 5) 03/19/2023 2:17 PM CDT Body Mass Index 27.96 03/19/2023 2:17 PM CDT Plan of Treatment Health Maintenance Due Date Last Done Comments DTAP/TDAP/TD VACCINES (1 - Tdap) 09/18/1978 PNEUMOCOCCAL VACCINE 50+ YEARS (1 of 2 - PCV) 09/18/18 79 BREAST CANCER SCREENING 1999 COLORECTAL SCREENING 09/18/2004 Colorectal Cancer Screening 09/18/2004 FIT-DNA Q 3 years 09/18/2004 FIT/FOBT Q 1 year 09/18/2004 Flex Sig/CT Colonography Q 5 years 09/18/2004 ZOSTER VACCINE (1 of 2) 09/18/2009 RSV VACCINE (60+ or ) (1 - Risk 60-74 years 1-dose series) 2019 OSTEOPOROSIS SCREENING 09/18/2024 INFLUENZA VACCINE (#1) 2024 Care Teams Atmospheric Drier Tender Relationship Specialty Start Date End Date Eugenio Schroeder MD [address] [place] [address] PCP - General Family Practice 08/19/17
[2024-12-26 10:40] LABS: MALB Creatinine Ratio 16.5 mg/g (0-30)
[2024-12-26 11:02] LABS: Hematocrit 51.5 % (37.0-47.0); Hemoglobin 16.3 g/dL (12.0-15.0); Immature Granulocyte Percent A 0.5 % (0-0.5); Lymphocytes Absolute Auto 4.07 K/mm3 (0.9-3.2); Mean Corpuscular HGB Conc 31.7 g/dl (32-36); Mean Corpuscular Hemoglobin 28.4 pg (26-34); Mean Corpuscular Volume 89.7 fl (80-100); Nucleated Red Blood Cells Absolute Auto 0.000 K/mm3 (0.0-0.012); Nucleated Red Blood Cells Perc 0.0 % (0.0-0.2); Platelet Count Result 306 k/mm3 (150-375); Red Blood Count 5.74 M/mm3 (4.2-5.4); White Blood Count 12.9 K/mm3 (4.5-10.0)
[2024-12-26 11:26] LABS: Alanine Aminotransferase 15 U/L (6-35); Albumin Level 4.5 g/dL (3.5-5.1); Alkaline Phosphatase 92 U/L (38-126); Anion Gap 7 mmol/L (4-12); Aspartate Amino Transferase 39 U/L (14-36); Bilirubin,Total 0.6 mg/dL (0.2-1.3); Blood Urea Nitrogen 15 mg/dL (7-17); Calcium 9.7 mg/dL (8.4-10.2); Carbon Dioxide 31 mmol/L (22-30); Chloride 97 mmol/L (98-107); Cholesterol 186 mg/dL (0-200); Estimated Glomerular Filt Rate > 60; Glucose 141 mg/dL (65-110); HDL Direct 58 mg/dL; Potassium 3.9 mmol/L (3.4-5.0); Sodium 135 mmol/L (137-145); Total Protein 8.0 g/dL (6.3-8.2); Triglycerides 127 mg/dL (<150)
[2024-12-26 11:41] LABS: Free T4 Free Thyroxine 1.00 ng/dL (0.78-2.19)
[2024-12-26 11:50] LABS: Iron 95 ug/dL (37-170)
[2024-12-26 12:00] LABS: Hemoglobin A1C 7.8 % (<5.7)
[2024-12-26 12:01] LABS: Thyroid Stimulating Hormone 3.400 uIU/mL (0.465-4.680)
[2024-12-26 12:09] LABS: Percent Iron Saturation 22 % (20-50)
[2024-12-26 20:11] LABS: Vitamin B12 301.0 pg/mL (239-931)
[2024-12-26 21:59] LABS: Ferritin 63.90 ng/mL (11.1-264)
[2024-12-27 07:09] LABS: C-Reactive Protein, Cardiac 13.46 mg/L (0.00-3.00)
== END 2024-12-26 09:37 | disposition home or self-care (01) ==
PROVIDERS: PCP Family Medicine; Visit Provider Family Medicine
DX: E78.5 Hyperlipidemia, unspecified (principal); E03.9 Hypothyroidism, unspecified; E55.9 Vitamin D deficiency, unspecified; E11.9 Type 2 diabetes mellitus without complications; E87.1 Hypo-osmolality and hyponatremia; M79.7 Fibromyalgia; E61.1 Iron deficiency; D72.828 Other elevated white blood cell count; E53.8 Deficiency of other specified B group vitamins; Z13.220 Encounter for screening for lipoid disorders
CPT/HCPCS: 36415; 80048; 80061; 80076; 82043; 82306; 82607; 82728; 83036; 83540; 83550; 84439; 84443; 85025; 85652; 86141

== ENCOUNTER 2025-04-10 12:46 | Outpatient (CLI) | payer BC, SELFPAY ==
--- NOTE | ~2025-04-10 | MMUS_ITS ---
EXAMINATION: MM diagnostic david BI w loreto, US breast RT limited HISTORY: Palpable right breast abnormality TECHNIQUE: Additional 3-D tomosynthesis images of the right breast were performed and synthetic 2-D images were generated. CAD analysis was submitted and interpreted. High resolution Limited right breast ultrasound was performed. COMPARISON: Comparison to multiple prior studies sequentially, with oldest reviewed study dated 06/04/2017. BREAST PARENCHYMAL COMPOSITION: Not dense: There are scattered areas of fibroglandular density. FINDINGS: MAMMOGRAPHIC FINDINGS: There are multiple new clusters of calcifications centered in the upper outer quadrant of the right breast. No new suspicious masses or areas of architectural distortion are seen. No evidence for malignancy in the left breast. ULTRASOUND Limited right breast ultrasound: In the area of palpable concern in the right breast at 6:00, 2 cm from the nipple there is an oval parallel oriented hyperechoic mass measuring 1.7 cm, likely benign. 6 month follow-up Limited right breast ultrasound recommended for surveillance. IMPRESSION: 1. Multiple clusters of right breast calcifications which are new in the upper outer quadrant of the right breast. These calcifications are indeterminate. 2. Stereotactic biopsy of at least one of the field support representative clusters of calcifications recommended. BI-RADS category 4, suspicious findings. Reviewed, dictated and finalized at location B. LOPMENT EDITOR IMPRESSION: 1. Multiple clusters of right breast calcifications which are new in the upper outer quadrant of the right breast. These calcifications are indeterminate. 2. Stereotactic biopsy of at least one of the field support representative clusters of calcif ications recommended. BI-RADS category 4, suspicious findings.
--- OUTSIDE RECORDS SUMMARY | 2025-04-10 12:50 | XMS_ITS | Clinical Summary ---
Author Organization [facility] [employer] Address [address] [place] [address] Care Team Providers Care Paper Bag Making Machinist Name Role Phone Eugenio Schroeder MD Primary Care Provider [phone] Source Comments [facility] [employer],non-owned Affiliates and Associated Physician Practices is amultiple site organization consisting of ambulatory clinics and hospital sitesin [place], [place], [place] and [place]. This disclosure is being madepursuant to the Care Everywhere program and may not contain all information available regarding this patient. Last updated 18.[facility] [employer] Allergies Active Allergy Reactions Criticality Noted Date [...] 09/18/2009 ZOSTER VACCINE (1 of 2) 09/18/2009 DEPRESSION SCREENING 05/31/2024 COVID-19 VACCINE (1 - 2023-2 5 season) 2025 INFLUENZA VACCINE (#1) 2025 Respiratory Syncytial Virus [...] patient's age to complete this topic Insurance [facility] Care Teams Paper Bag Making Machinist Relationship Specialty Start Date End Date Eugenio Schroeder MD [address] [place] [address] PCP - General 09/21/17
--- OUTSIDE RECORDS SUMMARY | 2025-04-10 12:50 | XMS_ITS | Encounter Summary ---
Author Organization [facility] Address [address] [place] [address] Care Team Providers Care Side Gluer Name Role Phone Eugenio Schroeder MD Primary Care Provider [phone] Encounter Details Date Type Department Care Team (Late st Contact Info) Description 09/05/2017 Lab Requisition [facility] Care Pathology Lab [address] [place] [address] Tito Shetty MD [address] [place] [address] Abnormal finding of blood chemistry Social History [...] PM CDT) Case Report Flow Cytometry Case: [id number] Authorizing Provider: Tito Shetty MD Collected: 09/03/2017 03:24 PM Pathologist: Flor Vega MD Received: 09/05/2017 01:35 PM Specimen: Blood 12:51 PM CDT [facility] Final Diagnosis Peripheral blood, Fl ow cytometric immunophenotypic analysis (09/05/17): - No evidence of non-Hodgkin lymphoma or acute leukemia. - See description. 12:51 PM [facility] at 1251 CDT Flow Cytometry Results Differential Result Comment WBC Count /uL [id number] Total Viability % 99 Lymphocytes % 34 Dim CD45 Region % 2 Monocytes % 8 Granulocytes % 56 12:51 PM [facility] Flow Cytometry Interpretation # [...] seen (CD4 to CD8 ratio = 2.3). [id number] blasts account for 0.5% of events analyzed. A peripheral blood smear prepared from the flow cytometry specimen is reviewed for quality control analyst purposes. The peripheral blood specimen shows no evidence of involvement by non-Hodgkin lymphoma or acute leukemia. Correlation with clinical findings is recommended. KM/PULL TAB DEALER/evp marketing 12:51 PM [facility] Reason for test Abnormal finding of blood chemistry 790.6 12:51 PM [facility] Client Specimen ID # [id number] 12:51 PM [facility] Disclaimer Test performed at [facility], [address] [place] [address], [address]. *The established laboratory minimum viability is 70%. [...] complexity clinical testing. 8 12:51 PM CDT [facility] Embedded Images 8 12:51 PM CDT [facility] Blood BLOOD SPECIMEN / Unknown 09/03/2017 3:24 PM CDT 09/05/2017 1:35 PM CDT us Tito Shetty MD LAB - PATHOLOGY/CYTOLOGY ORDERA BLES Final Result [facility] [address] [phone] documented in this encounter Visit Diagnoses Diagnosis Abnormal finding of blood chemistry Other abnormal blood chemistry documented in this encounter Care Teams Side Gluer Relationship Specialty Start Date End Date Eugenio Schroeder MD [address] [place] [address] PCP - General 09/21/17 documented as of this encounter
--- OUTSIDE RECORDS SUMMARY | 2025-04-10 12:50 | XMS_ITS | Clinical Summary ---
Author Organization [facility] Address [address] [place] [address] Care Team Providers Care Heel Top Lift Splitter Name Role Phone Eugenio Schroeder MD Primary Care Provider [phone] Allergies Active Allergy Reactions Criticality Noted Date [...] Comments Blood Pressure 143/72 04/15/2023 2:02 PM PATTERN MARKER Pulse 89 04/15/2023 2:00 PM PATTERN MARKER Temperature 35.9 C (96.6 F) 04/15/2023 2:00 PM PATTERN MARKER Respiratory Rate 10 04/15/2023 2:00 PM PATTERN MARKER Oxygen Saturation 97% 04/15/2023 2:00 PM PATTERN MARKER Inhaled Oxygen Concentration - - Weight 76.2 kg (168 lb) 04/15/2023 2:00 PM PATTERN MARKER Height 165.1 cm (5' 5) 03/19/2023 2:17 [...] Flex Sig/CT Colonography Q 5 years 09/18/2004 RSV VACCINE (60+ or ) (1 - Risk 50-74 years 1-dose series) 09/18/2009 ZOSTER VACCINE (1 of 2) 09/18/2009 OSTEOPOROSIS SCREENING 09/18/2024 INFLUENZA VACCINE (#1) 2024 Care Teams Heel Top Lift Splitter Relationship Specialty Start Date End Date Eugenio Schroeder MD [address] [place] [address] PCP - General Family Practice 08/19/17
== END 2025-04-10 12:47 | disposition home or self-care (01) ==
LOC: ANHFOHIMG 12:47
PROVIDERS: PCP Family Medicine; Visit Provider Nurse Practitioner Family
DX: N63.10 Unspecified lump in the right breast, unspecified quadrant (principal); Z78.0 Asymptomatic menopausal state; R92.8 Other abnormal and inconclusive findings on diagnostic imaging of breast
CPT/HCPCS: 76642; 77062; 77066; G0279